=== PATIENT | male | born 1990 | race Caucasian/White ===

== ENCOUNTER → 2021-01-09 11:51 | Outpatient (CLI) | payer BC, SELFPAY ==
[2015-06-23 11:15] VITALS: BMI 30.1
[2021-01-09 15:21] LABS: Absolute Lymphocyte Count 0.55 X10^3/uL (0.83-4.51); Absolute Neutrophil Count 3.7 X10^3/uL (2.0-7.7); Basophil# 0.03 X10^3/uL; Basophil% 0.6 % (0-1); Differential Indicated SCAN CRITERIA MET; Eosinophil# 0.04 X10^3/uL; Eosinophils% 0.8 % (0-5); Hematocrit 51.5 % (40-54); Hemoglobin 17.3 g/dL (13.0-16.5); Lymphocyte # 0.55 X10^3/ul (4.0); Lymphocyte % 11.2 % (19-41); Mean Corp Hgb Conc 33.6 g/dL (32-36); Mean Corpuscular Hgb 32.1 pg (27.0-32.0); Mean Corpuscular Volume 95.5 fL (80-94); Mean Platelet Vol. 10.2 fl (6.2-12.0); Monocyte# 0.58 X10^3/uL; Monocyte% 11.8 % (0-10); NRBC Flagged by Analyzer 0 % (0-5); Neutrophil # 3.71 X10^3/uL (2.7-7.7); Neutrophil % 75.4 % (47-70); POSITIVE DIFFERENTIAL YES; Platelet Count 223 K/mm3 (150-450); RBC Distribution Width CV 12.3 % (11.6-14.6); RBC Distribution Width SD 43.6 fl (35.1-43.9); Red Blood Count 5.39 M/mm3 (4.6-6.2); White Blood Count 4.9 K/mm3 (4.4-11.0)
[2021-01-09 15:49] LABS: ALB/GLOB Ratio 1.2 RATIO (0.9-2.4); AST(SGOT) 392 U/L (15-37); Alanine Aminotransfer ALT/SGPT 401 U/L (16-61); Albumin, Serum 4.4 g/dL (3.2-5.0); Alkaline Phosphatase 121 U/L (45-117); Anion Gap 9 (5-15); BUN 9 mg/dL (7-18); BUN/Creat Ratio 6.7 RATIO (10-20); Calcium,Total 9.8 mg/dL (8.5-10.1); Chloride 100 mmol/L (98-107); Creatinine, Serum 1.34 mg/dL (0.70-1.30); EST Glomerular Filtration Rate 66 mL/min (>60); Est Glom Filt Rate - Afr Amer 80 mL/min (>60); Globulin 3.6 g/dL (2.2-4.2); Glucose 103 mg/dL (74-106); Lipase 180 U/L (73-393); Potassium 3.6 mmol/L (3.5-5.1); Sodium Level 135 mmol/L (136-145)
[2021-01-09 15:52] LABS: Anisocytosis RARE; Macrocytosis RARE; Platelet Estimate ADEQUATE (ADEQ); Red Cell Morphology N CHROM NORMAL (NORM C&C)
== END ==
PROVIDERS: PCP Internal Medicine; Visit Provider Family Medicine
DX: F10.10 Alcohol abuse, uncomplicated (principal); R11.0 Nausea
CPT/HCPCS: 36415; 80053; 83690; 85025

== ENCOUNTER 2021-01-21 04:28 | Inpatient (IN) | payer BC, SELFPAY ==
[2021-01-21] VITALS (9 sets, daily range): BP systolic 110–150; BP diastolic 64–102; PULSE 75–120; RESP 16–18; TEMP 36.7–37.1; O2SAT 94–100; BMI 26.9; BMI 27.0; BMI 27.1
[2021-01-21] MEDS: 0.9% Normal Saline 1,000 ML 999 ML IV (05:04)
[2021-01-21 05:07] LABS: Absolute Lymphocyte Count 1.48 X10^3/uL (0.83-4.51); Absolute Neutrophil Count 2.9 X10^3/uL (2.0-7.7); Basophil# 0.05 X10^3/uL; Eosinophil# 0.02 X10^3/uL; Eosinophils% 0.4 % (0-5); Hemoglobin 16.6 g/dL (13.0-16.5); Lymphocyte # 1.48 X10^3/ul (0.83-4.51); Lymphocyte % 28.7 % (19-41); Mean Corp Hgb Conc 34.6 g/dL (32-36); Mean Corpuscular Volume 92.5 fL (80-94); Mean Platelet Vol. 9.7 fl (6.2-12.0); Monocyte# 0.71 X10^3/uL; Monocyte% 13.8 % (0-10); NRBC Flagged by Analyzer 0 % (0-5); Neutrophil # 2.88 X10^3/uL (2.7-7.7); Neutrophil % 55.7 % (47-70); Platelet Count 338 K/mm3 (150-450); RBC Distribution Width CV 11.7 % (11.6-14.6); RBC Distribution Width SD 40.2 fl (35.1-43.9); Red Blood Count 5.19 M/mm3 (4.6-6.2); White Blood Count 5.2 K/mm3 (4.4-11.0)
--- NOTE | 2021-01-21 05:15 | ED.VIS.GEN ---
History of Present Illness Chief Complaint: Substance Abuse Informant: Patient Narrative: Patient presents requesting detox from alcohol. Patient states his last drink was approximate hour ago. Patient drinks beer and states he can drink up to 24 a day. He states he is trying to quit on his own but has been unable. He states he gets shaky if he stops drinking. He does not believe he is ever had a seizure. He has never been through a rehab program. Past Medical History - Allergies and Home Meds Allergies/Adverse Reactions: Allergies Penicillins Allergy (Intermediate, Verified 01/21/21 04:32) Rash Primary Care Physician: Caroline Hinkle MD [STAFF PHYSICIAN] - Past Medical History: - - Alcohol abuse Smoking Status: Never smoker Alcohol: Heavy Review of Systems General: Denies: Chills, Fever Eyes: Denies: Visual changes - bilaterally ENT: Denies: Bilateral ear pain Cardiovascular: Denies: Chest pain Respiratory: Denies: Dyspnea, Cough Gastrointestinal: Reports: Abdominal pain, Vomiting. Denies: Diarrhea Genitourinary: Denies: Dysuria Musculoskeletal: Denies: Swelling, Extremity Pain Skin: Denies: Rash Hematologic: Denies: Easy bruising, Easy bleeding Allergy: Denies: Uticaria Physical Exam Vital Signs/Narrative: Vital Signs Temp Pulse Resp BP Pulse Ox 01/21/21 04:28 98.1 F 120 H 18 150/99 H 100 Inital Vital Signs reviewed: Yes General: Well nourished, Well developed Head: Normocephalic Neck: Supple Cardiovascular: Regular rate, Regular rhythm Respiratory: No distress, CTA bilaterally Abdomen: Soft, Nontender, Hypoactive bowel sounds Extremities: Nontender Skin: Normal color Neurological: Alert, Oriented x3 Psychological: Normal affect Diagnostic/Tx/Re-eval Laboratory Results 01/21/21 01/21/21 01/21/21 04:45 04:55 04:55 WBC 5.2 RBC 5.19 Hgb 16.6 H Hct 48.0 MCV 92.5 MCH 32.0 MCHC 34.6 RDW Std Deviation 40.2 RDW Coeff of Thais 11.7 Plt Count 338 MPV 9.7 Immature Gran % (Auto) 0.400 Neut % (Auto) 55.7 Lymph % (Auto) 28.7 [place] % (Auto) 13.8 H Eos % (Auto) 0.4 Baso % (Auto) 1.0 Absolute Neuts (auto) 2.9 Absolute Lymphs (auto) 1.48 Nucleated RBC % 0 Sodium 136 Potassium 3.6 Chloride 98 Carbon Dioxide 30.0 Anion Gap 8 BUN 5 L Creatinine 1.21 Estim Creat Clear Calc 95.08 Est GFR (MDRD) Af Amer 90 Est GFR (MDRD) Non-Af 75 BUN/Creatinine Ratio 4.1 L Glucose 114 H Calcium 8.8 Total Bilirubin 0.50 AST 140 H ALT 132 H Alkaline Phosphatase 108 Total Protein 7.2 Albumin 4.0 Globulin 3.2 Albumin/Globulin Ratio 1.2 Urine Opiates Screen NEGATIVE Urine Methadone Screen NEGATIVE Ur Barbiturates Screen NEGATIVE Ur Phencyclidine Scrn NEGATIVE Ur Amphetamines Screen NEGATIVE U Methamphetamin-MDMA NEGATIVE U Benzodiazepines Scrn NEGATIVE Urine Cocaine Screen NEGATIVE U Cannabinoids Screen NEGATIVE Ur Drug Screen Comment Ethyl Alcohol 01/21/21 04:55 WBC RBC Hgb Hct MCV MCH MCHC RDW Std Deviation RDW Coeff of Thais Plt Count MPV Immature Gran % (Auto) Neut % (Auto) Lymph % (Auto) [place] % (Auto) Eos % (Auto) Baso % (Auto) Absolute Neuts (auto) Absolute Lymphs (auto) Nucleated RBC % Sodium Potassium Chloride Carbon Dioxide Anion Gap BUN Creatinine Estim Creat Clear Calc Est GFR (MDRD) Af Amer Est GFR (MDRD) Non-Af BUN/Creatinine Ratio Glucose Calcium Total Bilirubin AST ALT Alkaline Phosphatase Total Protein Albumin Globulin Albumin/Globulin Ratio Urine Opiates Screen Urine Methadone Screen Ur Barbiturates Screen Ur Phencyclidine Scrn Ur Amphetamines Screen U Methamphetamin-MDMA U Benzodiazepines Scrn Urine Cocaine Screen U Cannabinoids Screen Ur Drug Screen Comment Ethyl Alcohol 365.0 H* - Medical Decision Making Patient presents requesting detox from alcohol. He did agree to the requirements for the detox unit. Blood work is obtained. LFTs are slightly elevated. Alcohol is elevated at 365. Patient will be discussed with hospitalist for admission and treatment. ED Disposition - Plan for ED Patient: Disposition: Acute Care Hospital [facility] Diagnosis: Desire for detoxification, Alcohol abuse Referrals: Caroline Hinkle MD [STAFF PHYSICIAN] -
[2021-01-21 05:22] LABS: Amphetamine Urine VISTA NEGATIVE (<1000 ng/mL); Barbiturate Urine VISTA NEGATIVE (< 200 ng/mL); Benzodiazepine Urine VISTA NEGATIVE (< 200 ng/mL); Cocaine Urine VISTA NEGATIVE (< 300 ng/mL); Ecstacy Urine VISTA NEGATIVE (< 500 ng/mL); Methadone Urine VISTA NEGATIVE (< 300 ng/mL); PCP Urine VISTA NEGATIVE (< 25 ng/mL); THC Urine VISTA NEGATIVE (< 50 ng/mL); Vista UDS pH Range 6
[2021-01-21 05:25] LABS: ALB/GLOB Ratio 1.2 RATIO (0.9-2.4); AST(SGOT) 140 U/L (15-37); Alanine Aminotransfer ALT/SGPT 132 U/L (16-61); Alkaline Phosphatase 108 U/L (45-117); Anion Gap 8 (5-15); BUN 5 mg/dL (7-18); BUN/Creat Ratio 4.1 RATIO (10-20); Calcium,Total 8.8 mg/dL (8.5-10.1); Chloride 98 mmol/L (98-107); Creatinine, Serum 1.21 mg/dL (0.70-1.30); EST Glomerular Filtration Rate 75 mL/min (>60); Est Glom Filt Rate - Afr Amer 90 mL/min (>60); Estimated Creatinine Clearance 95.08 ml/min; Globulin 3.2 g/dL (2.2-4.2); Glucose 114 mg/dL (74-106); Potassium 3.6 mmol/L (3.5-5.1); Protein, Total 7.2 g/dL (6.4-8.2); Sodium Level 136 mmol/L (136-145)
--- NOTE | 2021-01-21 05:47 | HP.PCM_ITS ---
Problem List (1) Desire for detoxification Status: Acute (2) Alcohol abuse Status: Acute History of Present Illness Date of Admission: 01/21/21 Chief Complaint: Desire for detoxification The patient is a 30 year old M with a significant history of hypertension; tobacco abuse; and alcoholism who presents to the emergency department for help with alcohol detoxification. Patient has been drinking for more than 10 years. Reportedly he drinks about 24 packs of beer per day. Last time he drank was about an hour prior to coming to the emergency department. He is unable to quit drinking because anytime he has tried to quit drinking by himself he gets very nauseous and shaky. He has never gone to any alcohol detoxification or rehabilitation program. Past Medical History Medical History: Medical History (Last Updated 01/21/21 @ 05:[address] Josemanuel Potter MD) Hypertension I10 Allergies Penicillins Allergy (Intermediate, Verified 01/21/21 04:32) Rash Home Medications: Ambulatory Orders Medication Instructions Recorded Lisinopril 10 mg PO DAILY 01/21/21 Multivit-Minerals/FA/Lycopene [One 1 each PO DAILY 01/21/21 Daily For Men Tablet] Ondansetron HCl [Zofran] 4 mg PO TID PRN PRN 01/21/21 Surgical History: appendectomy, tonsillectomy Psychiatric History: Anxiety, Depression - Reports borderline depression Smoking Status: Current every day smoker Tobacco Use: Chew Alcohol: Heavy - *Family History Maternal History Items: - - Denies knowledge of maternal medical history Paternal History Items: - - His father is an alcoholic Review of Systems Constitutional: Denies: Chills, Fever, Weight Change HEENT: Denies: Head Aches, Sinus Congestion, Sinus Drainage Cardiovascular: Denies: Chest Pain, Palpitations Respiratory: Denies: Cough, Shortness of breath at rest, Sputum production Gastrointestinal: Denies: Abdominal Pain, Nausea, Vomiting Genitourinary: Denies: Dysuria Musculoskeletal: Denies: Joint Pain, Joint Tenderness Skin: Denies: Rash, Wounds Neurological: Denies: Numbness, Tingling, Focal weakness Psychiatric: Denies: Anxiety, Depression, Homicidal Ideations, Suicidal Ideations Hematologic/ Lymphatic: Denies: Easy Bruising, Easy Bleeding VTE Information - Inpt Only VTE Present on Admission: No VTE Mechan Device Prophylaxis: None VTE Pharm Prophylaxis ordered?: No Reason prophylaxis not ordered:: Treatment Not Indicated - Encouraged to ambulate Patient Problems: Active and Suspected Problems Desire for detoxification (Acute) Alcohol abuse (Acute) - Physical Exam Vitals/I&O's: Vital Signs Temp Pulse Resp BP Pulse Ox 98.1 F 120 H 18 150/99 H 100 01/21/21 04:28 01/21/21 04:28 01/21/21 04:28 01/21/21 04:28 01/21/21 04:28 Oxygen Delivery Method Room Air Weight: 87.8 kg Body Mass Index (BMI) 26.9 General: Alert, Oriented x3, Cooperative HEENT: Atraumatic, PERRLA, EOMI, Normocephalic Neck: Supple, No JVD, Negative Carotid Bruits Lungs: Clear to auscultation, Normal air movement Cardiovascular: Regular rate, Normal S1, Normal S2, No murmurs Abdomen: Bowel Sounds Present, Soft, Non Tender Extremities: No edema, Capillary Refill Less than 3 Seconds Skin: No rashes, No breakdown Musculoskeletal: No Tenderness to Palpation of Joints or Extremities Neurological: Cranial nerves II-XII grossly intact Psych/Mental Status: Normal Affect, Appropriate Laboratory Results 01/21/21 04:45: Urine Opiates Screen NEGATIVE, Urine Methadone Screen NEGATIVE, Ur Barbiturates Screen NEGATIVE, Ur Phencyclidine Scrn NEGATIVE, Ur Amphetamines Screen NEGATIVE, U Methamphetamin-MDMA NEGATIVE, U Benzodiazepines Scrn NEGATIVE, Urine Cocaine Screen NEGATIVE, U Cannabinoids Screen NEGATIVE, Ur Drug Screen Comment 01/21/21 04:55: WBC 5.2, RBC 5.19, Hgb 16.6 H, Hct 48.0, MCV 92.5, MCH 32.0, MCHC 34.6, RDW Std Deviation 40.2, RDW Coeff of Thais 11.7, Plt Count 338, MPV 9.7, Immature Gran % (Auto) 0.400, Neut % (Auto) 55.7, Lymph % (Auto) 28.7, [place] % (Auto) 13.8 H, Eos % (Auto) 0.4, Baso % (Auto) 1.0, Absolute Neuts (auto) 2.9, Absolute Lymphs (auto) 1.48, Nucleated RBC % 0 01/21/21 04:55: Sodium 136, Potassium 3.6, Chloride 98, Carbon Dioxide 30.0, Anion Gap 8, BUN 5 L, Creatinine 1.21, Estim Creat Clear Calc 95.08, Est GFR (MDRD) Af Amer 90, Est GFR (MDRD) Non-Af 75, BUN/Creatinine Ratio 4.1 L, Glucose 114 H, Calcium 8.8, Total Bilirubin 0.50, AST 140 H, ALT 132 H, Alkaline Phosphatase 108, Total Protein 7.2, Albumin 4.0, Globulin 3.2, Albumin/Globulin Ratio 1.2 01/21/21 04:55: Ethyl Alcohol 365.0 H* Current Medications Sodium Chloride () 1,000 mls @ 999 mls/hr IV .Q1H1M ONE Stop: 01/21/21 05:51 Last Admin: 01/21/21 05:04 Dose: 999 mls/hr Documented by: Assessment/Plan All Active Problems Desire for detoxification (Acute) Alcohol abuse (Acute) The patient is a 30 year old M with a significant history of alcoholism; and t obacco abuse who presents emergency department for help with alcohol detoxification Alcohol dependence and desire for detoxification Patient be started on phenobarbital and other adjunctive medications: Gabapentin as needed; dicyclomine as needed; Vistaril as needed; methocarbamol as needed; clonidine as needed; Imodium as needed; trazodone as needed; Zofran as needed; scheduled thiamine; and schedule folic acid.. Monitor CIWA score Tobacco abuse Chews tobacco Counseled Agreeable to try nicotine gum. Nicotine gum as needed prescribed. Hypertension Blood pressure is not within goal Lisinopril continued. Trend blood pressure and adjust blood pressure medications. DVT prophylaxis Low risk Encourage to ambulate Inpatient E&M: 14281 Init Hosp L3
[2021-01-21] MEDS: Ondansetron 8 MG Tablet PO ×2 (08:06→18:20)
[2021-01-21] MEDS: Thiamine Hydrochloride 100 MG Tablet PO (08:06)
[2021-01-21] MEDS: Folic Acid 1 MG Tablet PO (08:06)
[2021-01-21] MEDS: Lisinopril 10 MG Tablet PO (08:06)
[2021-01-21] MEDS: Phenobarbital 32.4 MG Tablet 64.8 MG PO ×5 (08:06→23:04)
[2021-01-21] MEDS: Multivitamins,Therapeutic Tablet 1 TABLET PO (08:06)
--- NOTE | 2021-01-21 11:02 | CASEMGMT ---
SOCIAL WORK Patient admitted to [facility] for alcohol withdrawal management. Call to Jeanne with [facility] [employer] to updated on patient's admission. Jeanne to be in this afternoon to complete assessment. Aretha Ortega, MICA SPREADER, WAG[employer] DRILL OPERATOR
[2021-01-21] MEDS: proCHLORPERazine 10 MG/2 ML Vial 5 MG IV (21:32)
[2021-01-21] MEDS: 0.9% Saline Lock 10 ML Syringe IV (21:32)
[2021-01-21] MEDS: hydrOXYzine PAM 25 MG Capsule 50 MG PO (21:37)
[2021-01-21] MEDS: Gabapentin 300 MG Capsule PO (21:37)
[2021-01-21] MEDS: traZODone 100 MG Tablet PO (21:38)
[2021-01-21] MEDS: Nicotine Polacrilex 2 MG GUM PO (21:38)
[2021-01-22] MEDS: Phenobarbital 32.4 MG Tablet 64.8 MG PO ×6 (03:28→22:40)
[2021-01-22 03:33] VITALS: BP 118/68; PULSE 63; RESP 16; TEMP 37.3; O2SAT 96
[2021-01-22 03:36] VITALS: BP 118/68; PULSE 63; RESP 16; TEMP 37.3; O2SAT 96
[2021-01-22] MEDS: Multivitamins,Therapeutic Tablet 1 TABLET PO (08:29)
[2021-01-22] MEDS: Thiamine Hydrochloride 100 MG Tablet PO (08:29)
[2021-01-22] MEDS: Lisinopril 10 MG Tablet PO (08:29)
[2021-01-22] MEDS: Folic Acid 1 MG Tablet PO (08:29)
[2021-01-22 08:33] VITALS: BP 130/83; PULSE 77; RESP 16; TEMP 36.8; O2SAT 97
[2021-01-22] MEDS: Loperamide 2 MG Capsule PO ×2 (10:51→18:25)
--- NOTE | 2021-01-22 10:51 | PN_ITS ---
Patient Problems: Active and Suspected Problems Desire for detoxification (Acute) Alcohol abuse (Acute) Subjective: Feeling well today. Denies any significant symptoms of withdrawal he is a little bit anxious but otherwise not too bad. Vitals/I&O's: Vital Signs Temp Pulse Resp BP Pulse Ox 98.2 F 77 16 130/83 H 97 01/22/21 08:33 01/22/21 08:33 01/22/21 08:33 01/22/21 08:33 01/22/21 08:33 Oxygen Delivery Method Room Air Weight: 193 lb 5.526 oz Body Mass Index (BMI) 27.0 Intake and Output for Last 24 Hours 01/20/21 01/21/21 01/22/21 23:59 23:59 23:59 Intake Total 1800 / 2600 1400 / 1400 Balance 1800 / 2600 1400 / 1400 General: Alert, Oriented x3, Cooperative, No apparent distress HEENT: Atraumatic, PERRLA, EOMI, Normocephalic Oral: Moist Mucosa Neck: Supple, No JVD Lungs: Clear to auscultation, Normal air movement, No rhonchi, No wheeze, No rales Cardiovascular: Regular rate, Regular Rhythm, Normal S1, Normal S2, No murmurs Abdomen: Soft, Non Tender, Non-Distended, No Hepato-splenomegaly Extremities: No edema, Capillary Refill Less than 3 Seconds Skin: No rashes, No breakdown Neurological: Neuro grossly intact, Sensory exam intact to light touch and pain Psych/Mental Status: Anxious Current Medications Dicyclomine HCl (Dicyclomine 10 Mg Capsule) 20 mg PO Q6H PRN PRN PRN Reason: abdominal discomfort Folic Acid (Folic Acid 1 Mg Tablet) 1 mg PO DAILY@0800 [facility] Last Admin: 01/22/21 08:29 Dose: 1 mg Documented by: Gabapentin (Gabapentin 300 Mg Capsule) 300 mg PO Q8H PRN PRN PRN Reason: moderate to severe anxiety Last Admin: 01/21/21 21:37 Dose: 300 mg Documented by: Hydroxyzine Pamoate (Hydroxyzine Bella 25 Mg Capsule) 50 mg PO Q4H PRN PRN PRN Reason: mild anxiety Last Admin: 01/21/21 21:37 Dose: 50 mg Documented by: Lisinopril (Lisinopril 10 Mg Tablet) 10 mg PO DAILY [facility] Last Admin: 01/22/21 08:29 Dose: 10 mg Documented by: Loperamide HCl (Loperamide 2 Mg Capsule) 2 mg PO Q4H PRN PRN PRN Reason: LOOSE STOOLS Multivitamins (Multivitamins,Therapeutic Tablet) 1 tablet PO DAILYCM [facility] Last Admin: 01/22/21 08:29 Dose: 1 tablet Documented by: Nicotine Polacrilex (Nicotine Polacrilex 2 Mg Gum) 2 mg PO Q2H PRN PRN PRN Reason: Cravings for tobacco Last Admin: 01/21/21 21:38 Dose: 2 mg Documented by: Nutritional Formula (Lactose Free) (Ensure Enlive 120 Ml Liquid) 120 ml PO 4X/DAY [facility] Last Admin: 01/22/21 08:30 Dose: 120 ml Documented by: Ondansetron HCl (Ondansetron 4 Mg/2 Ml Vial) 4 mg IV Q6H PRN PRN PRN Reason: NAUSEA/VOMITING Phenobarbital (Phenobarbital 32.4 Mg Tablet) 97.2 mg PO Q4H [facility]; Taper Stop: 01/25/21 14:59 Last Admin: 01/22/21 06:32 Dose: 97.2 mg Documented by: Prochlorperazine Edisylate (Prochlorperazine 10 Mg/2 Ml Vial) 5 mg IV Q4H PRN PRN PRN Reason: NAUSEA/VOMITING Last Admin: 01/21/21 21:32 Dose: 5 mg Documented by: Sodium Chloride (0.9% Saline Lock 10 Ml Syringe) 10 - 40 ml IV UD PRN PRN Reason: SALINE FLUSH Last Admin: 01/21/21 21:32 Dose: 10 ml Documented by: Thiamine HCl ([facility] Hydrochloride 100 Mg Tablet) [facility] Last Admin: 01/22/21 08:29 Dose: 100 mg Documented by: Trazodone HCl (Trazodone 100 Mg Tablet) 100 mg PO QHS PRN PRN Reason: INSOMNIA Last Admin: 01/21/21 21:38 Dose: 100 mg Documented by: STROKE Vital Signs/Narrative: Vital Signs Temp Pulse Resp BP Pulse Ox 01/22/21 08:33 98.2 F 77 16 130/83 H 97 Medical Necessity - Tobacco Use Smoking Status: Current every day smoker Tobacco Use: Chew Assessment/Plan All Active Problems Desire for detoxification (Acute) Alcohol abuse (Acute) 1. Acute alcohol withdrawal/tobacco abuse -Continue with the alcohol withdrawal protocol -Need to follow-up with 180 as an outpatient -Discussed cessation of his chew tobacco, he is willing to try nicotine gum we will continue. 2. HTN -Blood pressures are stable -Continue with lisinopril DVT: Ambulation Inpatient E&M: 70148 Subs Hosp L2
[2021-01-22 10:57] VITALS: BP 145/90; PULSE 91; RESP 16; TEMP 37.6; O2SAT 96
[2021-01-22 14:52] VITALS: BP 132/70; PULSE 99; RESP 16; TEMP 37; O2SAT 97
[2021-01-22 22:32] VITALS: BP 149/88; PULSE 102; RESP 15; TEMP 36.8; O2SAT 97
[2021-01-22] MEDS: traZODone 100 MG Tablet PO (22:40)
[2021-01-23 03:03] VITALS: BP 136/84; PULSE 92; RESP 15; TEMP 36.9; O2SAT 96
[2021-01-23] MEDS: Phenobarbital 32.4 MG Tablet 64.8 MG PO ×4 (03:03→14:44)
[2021-01-23 07:57] VITALS: BP 142/85; PULSE 89; RESP 16; TEMP 36.8; O2SAT 97
[2021-01-23] MEDS: Lisinopril 10 MG Tablet PO (07:59)
[2021-01-23] MEDS: Thiamine Hydrochloride 100 MG Tablet PO (07:59)
[2021-01-23] MEDS: Multivitamins,Therapeutic Tablet 1 TABLET PO (08:00)
[2021-01-23] MEDS: Folic Acid 1 MG Tablet PO (08:00)
[2021-01-23] MEDS: Nicotine Polacrilex 2 MG GUM PO ×2 (08:03→17:10)
[2021-01-23] MEDS: hydrOXYzine PAM 25 MG Capsule 50 MG PO ×2 (11:24→23:09)
[2021-01-23 11:25] VITALS: BP 138/90; PULSE 93; RESP 18; TEMP 36.9; O2SAT 98
--- NOTE | 2021-01-23 15:16 | CHAPLAIN ---
Type of Pastoral Visit _x__ Initial Visit ___ Follow-up Visit ___ On-call Visit ___ General Patient Visit ___ Spiritual Assessment ___ Family Conference ___ Bereavement ___ Rapid Response ___ Code Blue ___ Other (describe below) Pastoral Care Referral From _x__ Patient ___ Family ___ Nurse ___ Physician ___ Pre Billing Clinician ___ Supervisor Paper Coating ___ Other (describe below) Sacrament/Intervention _x__ Active listening ___ Anointing ___ Baptist ___ Bereavement ___ Communion _x__ Sarah exploration ___ _x__ Life review _x__ Prayer ___ Reconciliation ___ Sacrament of Sick _x__ Supportive presence ___ Wedding ___ Other (describe below) Pastoral Comments patient has a goal to be baptized in the baptism but his struggles with alcohol have been a hindrance to follow through on his plans; pt has a daughter that he wants to be involved with more in life; pt lives alone and has some but limited support
--- NOTE | 2021-01-23 16:39 | PN_ITS ---
Patient Problems: Active and Suspected Problems Desire for detoxification (Acute) Alcohol abuse (Acute) Subjective: Patient was seen and examined today, he did not complain of any tremor or anxiety to this examiner, he question whether he could be discharged tomorrow-I told him I would review his phenobarbital dose and try to make adjustments if possible. - Physical Exam Vitals/I&O's: Vital Signs Temp Pulse Resp BP Pulse Ox 98.4 F 93 18 138/90 H 98 01/23/21 11:25 01/23/21 11:25 01/23/21 11:25 01/23/21 11:25 01/23/21 11:25 Oxygen Delivery Method Room Air Weight: 87.7 kg Body Mass Index (BMI) 27.0 Intake and Output for Last 24 Hours 01/21/21 01/22/21 01/23/21 23:59 23:59 23:59 Intake Total 1800 / 2600 2990 / 2990 1470 / 1470 Balance 1800 / 2600 2990 / 2990 1470 / 1470 General: Alert, Oriented x3, Cooperative, No apparent distress, Well developed, Well nourished HEENT: Atraumatic, PERRLA, EOMI, Normocephalic Neck: Supple, No JVD, Negative Carotid Bruits, Trachea Midline, Thyroid Normal S ize and Texture Lungs: Clear to auscultation, Normal air movement, No rhonchi, No wheeze, No rales Cardiovascular: Regular rate, Regular Rhythm, Normal S1, Normal S2, No murmurs, PMI Normal, No rub noted, No Gallop Abdomen: Bowel Sounds Present, Soft, Non Tender, Non-Distended Extremities: No clubbing, No cyanosis, No edema, Capillary Refill Less than 3 Seconds Skin: No rashes, No breakdown Musculoskeletal: No Tenderness to Palpation of Joints or Extremities Neurological: Cranial nerves II-XII grossly intact, Neuro grossly intact, Sensory exam intact to light touch and pain, Coordination normal Psych/Mental Status: Normal Affect, Appropriate, Alert and oriented to time, place, person, mood and affect Current Medications Dicyclomine HCl (Dicyclomine 10 Mg Capsule) 20 mg PO Q6H PRN PRN PRN Reason: abdominal discomfort Folic Acid (Folic Acid 1 Mg Tablet) 1 mg PO DAILY@0800 [facility] Last Admin: 01/23/21 08:00 Dose: 1 mg Documented by: Gabapentin (Gabapentin 300 Mg Capsule) 300 mg PO Q8H PRN PRN PRN Reason: moderate to severe anxiety Last Admin: 01/21/21 21:37 Dose: 300 mg Documented by: Hydroxyzine Pamoate (Hydroxyzine Bella 25 Mg Capsule) 50 mg PO Q4H PRN PRN PRN Reason: mild anxiety Last Admin: 01/23/21 11:24 Dose: 50 mg Documented by: Lisinopril (Lisinopril 10 Mg Tablet) 10 mg PO DAILY [facility] Last Admin: 01/23/21 07:59 Dose: 10 mg Documented by: Loperamide HCl (Loperamide 2 Mg Capsule) 2 mg PO Q4H PRN PRN PRN Reason: LOOSE STOOLS Last Admin: 01/22/21 18:25 Dose: 2 mg Documented by: Multivitamins ([facility],Therapeutic [facility]t) [facility] Last Admin: 01/23/21 08:00 Dose: 1 tablet Documented by: Nicotine Polacrilex (Nicotine Polacrilex 2 Mg Gum) 2 mg PO Q2H PRN PRN PRN Reason: Cravings for tobacco Last Admin: 01/23/21 08:03 Dose: 2 mg Documented by: Nutritional Formula (Lactose Free) (Ensure Enlive 120 Ml Liquid) 120 ml PO 4X/DAY [facility] Last Admin: 01/23/21 14:13 Dose: 120 ml Documented by: Ondansetron HCl (Ondansetron 4 Mg/2 Ml Vial) 4 mg IV Q6H PRN PRN PRN Reason: NAUSEA/VOMITING Phenobarbital (Phenobarbital 32.4 Mg Tablet) 64.8 mg PO Q6H [facility]; Taper Stop: 01/25/21 14:59 Last Admin: 01/23/21 14:44 Dose: 64.8 mg Documented by: Prochlorperazine Edisylate (Prochlorperazine 10 Mg/2 Ml Vial) 5 mg IV Q4H PRN PRN PRN Reason: NAUSEA/VOMITING Last Admin: 01/21/21 21:32 Dose: 5 mg Documented by: Sodium Chloride (0.9% Saline Lock 10 Ml Syringe) 10 - 40 ml IV UD PRN PRN Reason: SALINE FLUSH Last Admin: 01/21/21 21:32 Dose: 10 ml Documented by: Thiamine HCl (Thiamine Hydrochloride 100 Mg Tablet) 100 mg PO DAILYCM [facility] Last Admin: 01/23/21 07:59 Dose: 100 mg Documented by: Trazodone HCl (Trazodone 100 Mg Tablet) 100 mg PO QHS PRN PRN Reason: INSOMNIA Last Admin: 01/22/21 22:40 Dose: 100 mg Documented by: Medical Necessity - Tobacco Use Smoking Status: Current every day smoker Tobacco Use: Chew Assessment/Plan All Active Problems Desire for detoxification (Acute) Alcohol abuse (Acute) #1 acute alcohol withdrawal-I have decided to decrease the patient's phenobarbital to twice daily at reduced dosage, patient will continue to be monitored, patient has an appointment with 180 tomorrow as an outpatient, this will be a walk-in appointment. #2 chronic alcoholism #3 essential hypertension Inpatient E&M: 28852 Subs Hosp L2
[2021-01-23 17:21] VITALS: BP 142/80; TEMP 36.7
[2021-01-23 23:03] VITALS: BP 135/74; PULSE 90; RESP 15; TEMP 37.1; O2SAT 99
[2021-01-23] MEDS: traZODone 100 MG Tablet PO (23:09)
[2021-01-23] MEDS: Phenobarbital 32.4 MG Tablet PO (23:09)
[2021-01-24 03:46] VITALS: BP 132/78; PULSE 99; RESP 16; TEMP 37; O2SAT 98
[2021-01-24] MEDS: Thiamine Hydrochloride 100 MG Tablet PO (08:45)
[2021-01-24] MEDS: Multivitamins,Therapeutic Tablet 1 TABLET PO (08:45)
[2021-01-24] MEDS: Folic Acid 1 MG Tablet PO (08:45)
[2021-01-24 09:26] VITALS: BP 137/75; PULSE 86; RESP 18; TEMP 36.7; O2SAT 98
[2021-01-24] MEDS: Lisinopril 10 MG Tablet PO (09:38)
[2021-01-24] MEDS: Phenobarbital 32.4 MG Tablet PO (09:38)
[2021-01-24] MEDS: Nicotine Polacrilex 2 MG GUM PO (09:38)
--- NOTE | 2021-01-24 11:51 | DCINST_ITS ---
- Discharge Diagnoses Current Active Problems: Current Active and Chronic Problems Desire for detoxification (Acute) Alcohol abuse (Acute) You will use the following diet at home:: No restrictions Your food should be the consistency of: Regular Your liquids should be the consistency of: Regular/Thin Discharge Activity: Return to Normal Activity Weight Bearing Status: Full weight bearing Allergies/Adverse Reactions: Allergies Penicillins Allergy (Intermediate, Verified 01/21/21 04:32) Rash Medications to take at Discharge Lisinopril 10 mg PO DAILY 01/21/21 Multivit-Minerals/FA/Lycopene [One Daily For Men Tablet] 1 each PO DAILY 01/21/21 Ondansetron HCl [Zofran] 4 mg PO TID PRN PRN 01/21/21 Primary Care Physician: Caroline Hinkle MD [STAFF PHYSICIAN] - Test Results: Test results from this visit will be discussed in further detail at your follow- up appointment, if applicable. Please Follow Up With: 180 TODAY
[2021-01-24 12:11] VITALS: BP 142/91; PULSE 96; RESP 18; TEMP 36.9; O2SAT 99
--- NOTE | 2021-01-26 10:33 | PCM.DC.SUM ---
Discharge Date and Diagnosis - Problem List Patient Problems: Active and Suspected Problems Desire for detoxification (Acute) Alcohol abuse (Acute) Date of Admission: 01/21/21 Date of Discharge: 01/25/21 - Primary Discharge Diagnosis Acute Problems: Active Problems #1 acute alcohol withdrawal #2 chronic alcoholism #3 essential hypertension #4 alcohol intoxication Hospital Course and Treatment Operations: None Procedures: None Summary of Care Provided: The patient is a 30 year old M was seen in the emergency room at [facility] desiring services for detox from alcoholism. Patient was admitted to [place] [address], order sets were entered using the alcohol detox order set, there were no untoward events during his hospitalization and the patient showed no evidence of DTs. Patient was seen in consultation by addiction social media community manager and agreed to follow-up with 180 as an outpatient. On 01/24/21, patient was seen and examined: On examination he appeared in good health and spirits. Vital signs as documented. Skin warm and dry and without overt rashes. Neck without JVD, neck was supple, trachea midline, thyroid was normal. Lungs clear bilaterally, normal air movement was noted. Heart exam notable for regular rhythm, normal sounds and absence of murmurs, rubs or gallops. Abdomen unremarkable and without evidence of organomegaly, masses, or abdominal aortic enlargement. Bowel sounds are present, abdomen is not distended. Extremities nonedematous, no cyanosis was noted, no clubbing was noted. Neuro: Cranial nerves II through XII are grossly intact, no focal motor deficits were noted, sensation to light touch and pinprick intact, motor exam 5/5 throughout. Psych: Patient is alert and oriented x3, he does not appear anxious or depressed, he does not appear agitated. Patient was discharged in stable condition on 01/24/2021. Patient Problems: Active and Suspected Problems Desire for detoxification (Acute) Alcohol abuse (Acute) - Physical Exam Vitals/I&O's: Vital Signs Temp Pulse Resp BP Pulse Ox 98.4 F 96 18 142/91 H 99 01/24/21 12:11 01/24/21 12:11 01/24/21 12:11 01/24/21 12:11 01/24/21 12:11 Oxygen Delivery Method Room Air Weight: 87.7 kg Body Mass Index (BMI) 27.0 Intake and Output for Last 24 Hours 04/01/25/21 01/26/21 23:59 23:59 23:59 Intake Total 1020 / 1020 Balance 1020 / 1020 Discharge Activity: Return to Normal Activity Weight Bearing Status: Full weight bearing Home Medications: Medications to take at Discharge Lisinopril 10 mg PO DAILY 01/21/21 Multivit-Minerals/FA/Lycopene [One Daily For Men Tablet] 1 each PO DAILY 01/21/21 Ondansetron HCl [Zofran] 4 mg PO TID PRN PRN 01/21/21 Primary Care Physician: Caroline Hinkle MD [STAFF PHYSICIAN] - Please Follow Up With: 180 TODAY Disposition: Home Minutes spent on discharge:: 31 Patient Condition:: Stable Medical Necessity - Tobacco Use Smoking Status: Current every day smoker Tobacco Use: Chew Meaningful Use Info Meaningful Use Diagnoses (Choose all that apply): None applicable Inpatient E&M: 72637 Disch Hosp
== END 2021-01-24 12:12 | disposition home or self-care (01) | DRG 897 ==
LOC: ED 05:33 → MS3 05:43
PROVIDERS: Admitting Provider Hospitalist; Emergency Provider Emergency Medicine; PCP Family Medicine; Visit Provider Internal Medicine
DX: F10.239 Alcohol dependence with withdrawal, unspecified (principal); F17.220 Nicotine dependence, chewing tobacco, uncomplicated; F10.229 Alcohol dependence with intoxication, unspecified; I10 Essential (primary) hypertension; Z79.899 Other long term (current) drug therapy; Y90.8 Blood alcohol level of 240 mg/100 ml or more
CPT/HCPCS: 80053; 80307; 82077; 85025; 97802; 99283; J7030; A4216

== ENCOUNTER 2021-03-13 19:52 | Inpatient (IN) | payer SELFPAY ==
[2021-01-21 06:17] VITALS: BMI 27.0
[2021-03-13 19:53] VITALS: BP 143/78; PULSE 133; RESP 16; TEMP 36.4; O2SAT 100; BMI 27.8
--- NOTE | 2021-03-13 20:01 | EKG12_ITS ---
Test Reason : SUB ABUSE Blood Pressure : / mmHG Vent. Rate : 123 BPM Atrial Rate : 123 BPM P-R Int : 124 ms QRS Dur : 090 ms QT Int : 364 ms P-R-T Axes : 075 054 055 degrees QTc Int : 521 ms Sinus tachycardia Otherwise normal ECG Confirmed by BRIAN LEVY, CECILIA ([id number]), editor trade journal MIN BOLAÑOS ([id number]) on 03/17/2021 8:15:14 AM Referred By: Confirmed By:CECILIA TORRES MD
--- NOTE | 2021-03-13 20:06 | EX.ED.DYSGE1 ---
HPI History of Present Illness Chief Complaint: Substance Abuse Informant: patient Narrative Narrative: 30-year-old male with a history of alcoholism states that he last had detox 1 month ago (review of the chart shows it was actually January 21 when he was here). He states about 2 weeks ago his grandfather and he went back to drinking 18+ beers a day. He states he drinks until he passes out. Last drink was late last night. He states that he did not follow-up because he thought he could maintain sobriety by himself. [facility] Medical History Asthma Hypertension Hypertension Home Medications lisinopril 10 mg PO DAILY 01/21/21 [History Last Taken 01/17/21] multivit with [id number] 1 each PO DAILY 01/21/21 [History Last Taken Unknown] fluoxetine 40 mg DAILY 03/13/21 [History Last Taken Unknown] Allergy/AdvReac Type Severity Reaction Status Date / Time Penicillins Allergy Intermediate Rash Verified 03/13/21 19:55 Surgical History (Updated 03/13/21 @ 19:58 by Verito Lovell RN) History of appendectomy Social History (Updated 03/13/21 @ 20:[address] Javier Thibodeaux DO) Smoking Status: Current every day smoker tobacco type: smokeless tobacco alcohol intake: current alcohol intake frequency: 3 or more drinks per day Alcohol type: beer substance use type: does not use ROS ROS ED Constitutional Constitutional ED: Denies chills or weight loss Eyes Eyes: Denies change in vision or diplopia ENT ENT ED: Denies ear pain, rhinorrhea or sore throat Cardiovascular Cardiovascular: Denies chest pain, orthopnea, palpitations or racing heartbeat Respiratory/Chest Respiratory/Chest: Denies cough, dyspnea or orthopnea Gastrointestinal Gastrointestinal: Denies abdominal pain, diarrhea, nausea or vomiting Genitourinary Genitourinary ED: Denies dysuria, hematuria or urinary frequency Musculoskeletal Musculoskeletal: Denies arthralgias or myalgias Integumentary Denies abscess or rash Neurologic Neurologic: Denies headache(s) or weakness Psychiatric Psychiatric: Denies anxiety, depression, suicidal ideation or suicidal thoughts Endocrine Endocrinology: Denies polydipsia, polyphagia or polyuria Allergic/Immunologic Allergic/Immunologic ED: Denies mouth swelling, tongue swelling or urticaria EXAM Physical Exam Const Vital Signs: 03/13/21 19:53 03/13/21 20:12 Temperature 97.6 F L 97.2 F L Temperature Source Temporal Temporal Pulse Rate 133 H 101 H Respiratory Rate 16 14 Blood Pressure 143/78 H Blood Pressure Mean 99 Pulse Ox 100 98 Oxygen Delivery Method Room Air Room Air Positive well nourished and well developed General Appearance ED: well developed HEENT Reports normocephalic, head/scalp atraumatic and moist mucous membranes Eyes PERRL and EOMs intact bilaterally Neck no lymphadenopathy, supple and no JVD Resp normal respiratory effort and clear to auscultation bilaterally Cardio regular rate and no murmurs Rate: tachycardic GI normal to inspection, nondistended, normoactive bowel sounds and non-tender Palpation: soft Back/Spine no CVA tenderness and normal ROM Extremity normal to inspection General Extremety ED: Negative for edema General Extremity: Negative for edema Neuro oriented x3 and CN's II-XII intact bilaterally Sensorium / Orientation: alert Motor Exam: strength 5/5 throughout Psych mental status grossly normal Mood & Affect: Negative for depressed or tearful Skin no rashes or lesions noted and no wounds MDM MDM MDM Narrative Medical decision making narrative: ED addiction order set was used. Once he is medically cleared and if he is agreeable to the rules of the program I will speak with the hospitalist regarding potential admission Lab Data Attestation: I reviewed the patient's lab results. Labs: Laboratory Results - last 24 hr 03/13/21 03/13/21 03/13/21 20:03 20:15 20:15 WBC 8.3 RBC 5.43 Hgb 17.1 H Hct 47.4 MCV 87.3 MCH 31.5 MCHC 36.1 H RDW Std Deviation 38.0 RDW Coeff of Thais 12.1 Plt Count 330 MPV 9.3 Immature Gran % (Auto) 0.400 Neut % (Auto) 79.3 H Lymph % (Auto) 11.9 L [place] % (Auto) 7.9 Eos % (Auto) 0.0 Baso % (Auto) 0.5 Absolute Neuts (auto) 6.6 Absolute Lymphs (auto) 0.98 Nucleated RBC % 0 PT 14.0 INR 1.1 Sodium Potassium Chloride Carbon Dioxide Anion Gap BUN Creatinine Estim Creat Clear Calc Est GFR (MDRD) Af Amer Est GFR (MDRD) Non-Af BUN/Creatinine Ratio Glucose Calcium Total Bilirubin AST ALT Alkaline Phosphatase Total Protein Albumin Globulin Albumin/Globulin Ratio Urine Opiates Screen NEGATIVE Urine Methadone Screen NEGATIVE Ur Barbiturates Screen NEGATIVE Ur Phencyclidine Scrn NEGATIVE Ur Amphetamines Screen NEGATIVE U Methamphetamin-MDMA NEGATIVE U Benzodiazepines Scrn NEGATIVE Urine Cocaine Screen NEGATIVE U Cannabinoids Screen NEGATIVE Ur Drug Screen Comment Ethyl Alcohol 03/13/21 03/13/21 20:15 20:15 WBC RBC Hgb Hct MCV MCH MCHC RDW Std Deviation RDW Coeff of Thais Plt Count MPV Immature Gran % (Auto) Neut % (Auto) Lymph % (Auto) [place] % (Auto) Eos % (Auto) Baso % (Auto) Absolute Neuts (auto) Absolute Lymphs (auto) Nucleated RBC % PT INR Sodium 135 L Potassium 3.3 L Chloride 95 L Carbon Dioxide 22.0 Anion Gap 18 H BUN 9 Creatinine 1.38 H Estim Creat Clear Calc 83.36 Est GFR (MDRD) Af Amer 77 Est GFR (MDRD) Non-Af 64 BUN/Creatinine Ratio 6.5 L Glucose 142 H Calcium 9.6 Total Bilirubin 1.00 AST 45 H ALT 70 H Alkaline Phosphatase 91 Total Protein 7.8 Albumin 4.4 Globulin 3.4 Albumin/Globulin Ratio 1.3 Urine Opiates Screen Urine Methadone Screen Ur Barbiturates Screen Ur Phencyclidine Scrn Ur Amphetamines Screen U Methamphetamin-MDMA U Benzodiazepines Scrn Urine Cocaine Screen U Cannabinoids Screen Ur Drug Screen Comment Ethyl Alcohol 12.0 EKG Initial EKG: Attestation: I personally reviewed and interpreted this EKG as follows: Interpretation: Sinus Tachycardia Comments: EKG is a sinus tachycardia at a rate of 123. Discharge Plan Dx/Rx/DC Orders Clinical Impression: Alcohol abuse, Alcohol withdrawal Disposition Disposition: Acute Care Hospital [facility]
[2021-03-13 20:12] VITALS: PULSE 101; RESP 14; TEMP 36.2; O2SAT 98
[2021-03-13 20:27] LABS: Amphetamine Urine VISTA NEGATIVE (<1000 ng/mL); Barbiturate Urine VISTA NEGATIVE (< 200 ng/mL); Benzodiazepine Urine VISTA NEGATIVE (< 200 ng/mL); Cocaine Urine VISTA NEGATIVE (< 300 ng/mL); Ecstacy Urine VISTA NEGATIVE (< 500 ng/mL); Methadone Urine VISTA NEGATIVE (< 300 ng/mL); PCP Urine VISTA NEGATIVE (< 25 ng/mL); THC Urine VISTA NEGATIVE (< 50 ng/mL); Vista UDS pH Range 6
[2021-03-13 20:29] LABS: Absolute Lymphocyte Count 0.98 X10^3/uL (0.83-4.51); Absolute Neutrophil Count 6.6 X10^3/uL (2.0-7.7); Basophil# 0.04 X10^3/uL; Basophil% 0.5 % (0-1); Hematocrit 47.4 % (40-54); Hemoglobin 17.1 g/dL (13.0-16.5); Lymphocyte # 0.98 X10^3/ul (0.83-4.51); Lymphocyte % 11.9 % (19-41); Mean Corp Hgb Conc 36.1 g/dL (32-36); Mean Corpuscular Hgb 31.5 pg (27.0-32.0); Mean Corpuscular Volume 87.3 fL (80-94); Mean Platelet Vol. 9.3 fl (6.2-12.0); Monocyte# 0.65 X10^3/uL; Monocyte% 7.9 % (0-10); NRBC Flagged by Analyzer 0 % (0-5); Neutrophil # 6.57 X10^3/uL (2.7-7.7); Neutrophil % 79.3 % (47-70); Platelet Count 330 K/mm3 (150-450); RBC Distribution Width CV 12.1 % (11.6-14.6); Red Blood Count 5.43 M/mm3 (4.6-6.2); White Blood Count 8.3 K/mm3 (4.4-11.0)
--- NOTE | 2021-03-13 20:33 | CM.ED ---
JOSSELIN Note Referral Source: Case Find Referral Reason: TAMERA Gong met with patient in his room. Patient reports desire to detox. Patient voices he has been drinking 18 beers a day. Patient was asked if his drinking has increased lately or if the 18 beers/day is his normal and he indicated it was his normal amount of drinking. Patient said that his last drink was last night. Patient said that he understands that his belongings will be locked, no visitors or phone calls and he would need to sign a contract for detox and patient was in agreement with the program. JOSSELIN called Jeanne at [facility]. SW made referral to the treatment navigator, Jeanne. Jeanne said that Emily would follow up on Saturday. No further JOSSELIN needs at this time. Uyen PRICE
[2021-03-13 20:37] LABS: International Normalized Ratio 1.1
[2021-03-13 20:46] LABS: ALB/GLOB Ratio 1.3 RATIO (0.9-2.4); AST(SGOT) 45 U/L (15-37); Alanine Aminotransfer ALT/SGPT 70 U/L (16-61); Albumin, Serum 4.4 g/dL (3.2-5.0); Alkaline Phosphatase 91 U/L (45-117); Anion Gap 18 (5-15); BUN 9 mg/dL (7-18); BUN/Creat Ratio 6.5 RATIO (10-20); Calcium,Total 9.6 mg/dL (8.5-10.1); Chloride 95 mmol/L (98-107); Creatinine, Serum 1.38 mg/dL (0.70-1.30); EST Glomerular Filtration Rate 64 mL/min (>60); Est Glom Filt Rate - Afr Amer 77 mL/min (>60); Estimated Creatinine Clearance 83.36 ml/min; Globulin 3.4 g/dL (2.2-4.2); Glucose 142 mg/dL (74-106); Potassium 3.3 mmol/L (3.5-5.1); Protein, Total 7.8 g/dL (6.4-8.2); Sodium Level 135 mmol/L (136-145)
--- NOTE | 2021-03-13 20:59 | PCM.HP.STD ---
HPI - General General Date of Admission: 03/13/21 Date of Service: 03/13/21 Chief Complaint: Desire for detoxification HPI Narrative SIA SPARKS, is a 30 M wiith a significant history of anxiety disorder; hypertension; and alcoholism who presents to emergency department for desire for detoxification. Patient reports withdrawal symptoms of light tremors; nausea and vomiting. Patient reports drinking since he was in high school. He drinks 18 of more of regular beers. He drinks until he passes out. Patient was in our hospital alcohol detoxification program and was discharged on 01/26/2021. He reported that his grandfather about 2 weeks ago. Since his grandfather he began to drink again. [facility] Medical History (Updated 03/13/21 @ 21:[address] Josemanuel Potter MD) Asthma Hypertension Hypertension Home Medications lisinopril 10 mg PO DAILY 01/21/21 [History Last Taken 01/17/21] multivit with [id number] 1 each PO DAILY 01/21/21 [History Last Taken Unknown] fluoxetine 40 mg DAILY 03/13/21 [History Last Taken Unknown] Allergy/AdvReac Type Severity Reaction Status Date / Time Penicillins Allergy Intermediate Rash Verified 03/13/21 19:55 Family History (Updated 03/13/21 @ 21:[address] Josemanuel Potter MD) Father Alcoholism in family member Surgical History (Updated 03/13/21 @ 21:[address] Josemanuel Potter MD) History of appendectomy History of tonsillectomy Social History (Updated 03/13/21 @ 21:[address] Josemanuel Potter MD) Smoking Status: Current every day smoker tobacco type: smokeless tobacco Smokeless tobacco user: chewing tobacco alcohol intake: current alcohol intake frequency: 3 or more drinks per day Alcohol type: beer substance use type: does not use ROS ROS Narrative 12 point review of system is negative except as stated in HPI Vital Signs Vital Signs Vital Signs: 03/13/21 19:53 03/13/21 20:12 Temperature 97.6 F L 97.2 F L Temperature Source Temporal Temporal Pulse Rate 133 H 101 H Respiratory Rate 16 14 Blood Pressure 143/78 H Blood Pressure Mean 99 Pulse Ox 100 98 Oxygen Delivery Method Room Air Room Air Weight Weight: 90.718 kg Body Mass Index (BMI) 27.8 Physical Exam Narrative Alert and oriented x3 Nontraumatic; normocephalic Lung clear to auscultate Heart sounds S1-S2. No murmur, gallop or rubs. Abdomen bowel sounds present soft, nontender nondistended Extremity without edema cyanosis or clubbing. Results Lab / Micro Data Result Diagrams: 03/13/21 20:15 03/13/21 20:15 Labs: Laboratory Results - last 24 hr 03/13/21 03/13/21 03/13/21 20:03 20:15 20:15 WBC 8.3 RBC 5.43 Hgb 17.1 H Hct 47.4 MCV 87.3 MCH 31.5 MCHC 36.1 H RDW Std Deviation 38.0 RDW Coeff of Thais 12.1 Plt Count 330 MPV 9.3 Immature Gran % (Auto) 0.400 Neut % (Auto) 79.3 H Lymph % (Auto) 11.9 L [place] % (Auto) 7.9 Eos % (Auto) 0.0 Baso % (Auto) 0.5 Absolute Neuts (auto) 6.6 Absolute Lymphs (auto) 0.98 Nucleated RBC % 0 PT 14.0 INR 1.1 Sodium Potassium Chloride Carbon Dioxide Anion Gap BUN Creatinine Estim Creat Clear Calc Est GFR (MDRD) Af Amer Est GFR (MDRD) Non-Af BUN/Creatinine Ratio Glucose Calcium Total Bilirubin AST ALT Alkaline Phosphatase Total Protein Albumin Globulin Albumin/Globulin Ratio Urine Opiates Screen NEGATIVE Urine Methadone Screen NEGATIVE Ur Barbiturates Screen NEGATIVE Ur Phencyclidine Scrn NEGATIVE Ur Amphetamines Screen NEGATIVE U Methamphetamin-MDMA NEGATIVE U Benzodiazepines Scrn NEGATIVE Urine Cocaine Screen NEGATIVE U Cannabinoids Screen NEGATIVE Ur Drug Screen Comment Ethyl Alcohol 03/13/21 03/13/21 20:15 20:15 WBC RBC Hgb Hct MCV MCH MCHC RDW Std Deviation RDW Coeff of Thais Plt Count MPV Immature Gran % (Auto) Neut % (Auto) Lymph % (Auto) [place] % (Auto) Eos % (Auto) Baso % (Auto) Absolute Neuts (auto) Absolute Lymphs (auto) Nucleated RBC % PT INR Sodium 135 L Potassium 3.3 L Chloride 95 L Carbon Dioxide 22.0 Anion Gap 18 H BUN 9 Creatinine 1.38 H Estim Creat Clear Calc 83.36 Est GFR (MDRD) Af Amer 77 Est GFR (MDRD) Non-Af 64 BUN/Creatinine Ratio 6.5 L Glucose 142 H Calcium 9.6 Total Bilirubin 1.00 AST 45 H ALT 70 H Alkaline Phosphatase 91 Total Protein 7.8 Albumin 4.4 Globulin 3.4 Albumin/Globulin Ratio 1.3 Urine Opiates Screen Urine Methadone Screen Ur Barbiturates Screen Ur Phencyclidine Scrn Ur Amphetamines Screen U Methamphetamin-MDMA U Benzodiazepines Scrn Urine Cocaine Screen U Cannabinoids Screen Ur Drug Screen Comment Ethyl Alcohol 12.0 Assessment & Plan Assessment/Plan (1) Desire for detoxification: (2) Alcohol abuse: (3) Alcohol withdrawal: QUALIFIERS: Complication of substance-induced condition: uncomplicated Qualified Code(s): F10.230 - Alcohol dependence with withdrawal, uncomplicated (4) Tobacco abuse: PLAN: The patient is a 30 year old M with a significant history of alcoholism; anxiety disoder; HTN and tobacco abuse who presents emergency department with alcohol withdrawal symptoms and is requesting detoxification Alcohol dependence and desire for detoxification Patient be started on phenobarbital and other adjunctive medications: Gabapentin as needed; dicyclomine as needed; Vistaril as needed; Imodium as needed; trazodone as needed; Zofran as needed; scheduled thiamine; and schedule folic acid. Monitor CIWA score Tobacco abuse Emergency department labs reviewed showed erythrocytosis. Likely secondary to tobacco use. Counseled Nicotine patch prescribed. Hypokalemia Potassium of 3.3. Likely secondary to alcoholism. Replace. Check magnesium. Hypertension Blood pressure is not within goal Lisinopril continued. Trend blood pressure and adjust blood pressure medications. Depression Fluoxetine continued DVT prophylaxis Low risk Encourage to ambulate Charges/Coding Visit Charges Inpatient E&M: 20034 Init Hosp L3
[2021-03-13 21:01] VITALS: BP 146/95; PULSE 105; PULSE 107; RESP 15; TEMP 36.6; O2SAT 98
[2021-03-13 21:46] VITALS: BMI 26.4
[2021-03-13 21:47] VITALS: BP 165/92; PULSE 107; RESP 18; TEMP 36.7; O2SAT 100
[2021-03-13 21:54] LABS: Magnesium 1.5 mg/dL (1.6-2.6)
[2021-03-13] MEDS: traZODone 100 MG Tablet PO (22:14)
[2021-03-13] MEDS: Phenobarbital 32.4 MG Tablet 64.8 MG PO (22:14)
[2021-03-13] MEDS: Lisinopril 10 MG Tablet PO (22:15)
[2021-03-13] MEDS: hydrOXYzine PAM 25 MG Capsule 50 MG PO (22:15)
[2021-03-13] MEDS: Potassium Chloride Oral Tablet 20 MEQ 40 MEQ PO (22:15)
[2021-03-13 22:36] VITALS: O2SAT 98
[2021-03-14] VITALS (7 sets, daily range): BP systolic 135–158; BP diastolic 78–98; PULSE 93–118; RESP 16–18; TEMP 36.4–36.9; O2SAT 98–100
[2021-03-14] MEDS: Phenobarbital 32.4 MG Tablet 64.8 MG PO ×6 (02:32→21:33)
[2021-03-14] MEDS: hydrOXYzine PAM 25 MG Capsule 50 MG PO ×3 (02:32→14:28)
[2021-03-14] MEDS: Loperamide 2 MG Capsule PO ×2 (07:49→18:27)
[2021-03-14] MEDS: Dicyclomine 10 MG Capsule 20 MG PO ×2 (07:49→14:28)
--- NOTE | 2021-03-14 08:50 | CASEMGMT ---
Social Work Note JOSSELIN received message from Afia at [facility] stating she spoke with pre-cert and pt is self-pay as pt's insurance has terminated. JOSSELIN reviewed [facility] notes, pt's [place] insurance termed 03/06/2021. Afia Doss [employer], WELT DRAWER
[2021-03-14 08:56] LABS: ALB/GLOB Ratio 1.2 RATIO (0.9-2.4); AST(SGOT) 36 U/L (15-37); Alanine Aminotransfer ALT/SGPT 54 U/L (16-61); Albumin, Serum 3.5 g/dL (3.2-5.0); Alkaline Phosphatase 95 U/L (45-117); Anion Gap 12 (5-15); BUN 7 mg/dL (7-18); BUN/Creat Ratio 6.1 RATIO (10-20); Calcium,Total 8.7 mg/dL (8.5-10.1); Chloride 98 mmol/L (98-107); Creatinine, Serum 1.15 mg/dL (0.70-1.30); EST Glomerular Filtration Rate 79 mL/min (>60); Est Glom Filt Rate - Afr Amer 96 mL/min (>60); Estimated Creatinine Clearance 100.04 ml/min; Glucose 105 mg/dL (74-106); Potassium 3.3 mmol/L (3.5-5.1); Protein, Total 6.5 g/dL (6.4-8.2); Sodium Level 135 mmol/L (136-145)
--- NOTE | 2021-03-14 09:10 | ADDICTION ---
This story writer met with PT to conduct ASAM, MSE, AUDIT assessments and to plan for d/c. PT A+Ox4. All assessments completed, faxed to [facility] and placed in PT's chart. PT plans to f[facility]u with [facility] for assessment and IOP. PT to d/c to home, no transportation needs identified. This story writer will complete form for payment assistance through the [employer] [facility] as PT's insurance has lapsed per [facility] SW.
[2021-03-14] MEDS: Thiamine Hydrochloride 100 MG Tablet PO (09:32)
[2021-03-14] MEDS: Gabapentin 300 MG Capsule PO ×2 (09:33→18:27)
[2021-03-14] MEDS: Multivitamins,Ther W-Minerals Tablet 1 TABLET PO (09:33)
[2021-03-14] MEDS: Folic Acid 1 MG Tablet PO (09:33)
[2021-03-14] MEDS: Lisinopril 10 MG Tablet PO (09:33)
[2021-03-14] MEDS: FLUoxetine 20 MG Capsule 40 MG PO (09:33)
--- NOTE | 2021-03-14 10:34 | CASEMGMT ---
Social Work Note Pt is RAMP pt and per [facility] pt is self-pay. SW in to speak with pt. SW introduced self and role at [facility]. Pt was unaware that his insurance terminated, pt states he just paid his insurance. Pt states his insurance is through [place]. SW encouraged pt to call [employer] [place] when he is discharged from [facility] to inquire why they are telling [facility] that his insurance has terminated. Pt states he will do so. SW provided pt with [facility] number to call once he speaks with Yumiko about his insurance. Pt states he is currently not working. JOSSELIN provided pt with financial resources including HCAP application, Medicaid Application, [employer], Samantha Kang, [facility], RX assistance programs, [facility]. Pt thanked this worker, denied additional needs or concerns at this time. Emily with [employer] to complete financial assistance paperwork with pt through the [place] [place]. Afia Doss [employer], [employer]
[2021-03-14 12:21] LABS: Magnesium 1.7 mg/dL (1.6-2.6)
--- NOTE | 2021-03-14 12:40 | PCM.PN.HOSP ---
Subjective Subjective Patient was seen and examined. Denied any new complaints. No acute events overnight. Objective Data Objective Data Vital Signs: Vital Signs Temp Pulse Resp BP Pulse Ox 98.1 F 93 18 147/78 H 98 03/14/21 09:24 03/14/21 09:24 03/14/21 09:24 03/14/21 09:24 03/14/21 09:24 Oxygen Delivery Method Room Air Weight: 86.183 kg Body Mass Index (BMI) 26.4 Intake & Output: Intake and Output for Last 24 Hours 03/12/21 03/13/21 03/14/21 23:59 23:59 23:59 Intake Total 500 / 500 500 / 500 Balance 500 / 500 500 / 500 Lab / Micro Data Result Diagrams: 03/13/21 20:15 03/14/21 08:14 Labs: Laboratory Results - last 24 hr 03/13/21 03/13/21 03/13/21 20:03 20:15 20:15 WBC 8.3 RBC 5.43 Hgb 17.1 H Hct 47.4 MCV 87.3 MCH 31.5 MCHC 36.1 H RDW Std Deviation 38.0 RDW Coeff of Thais 12.1 Plt Count 330 MPV 9.3 Immature Gran % (Auto) 0.400 Neut % (Auto) 79.3 H Lymph % (Auto) 11.9 L [place] % (Auto) 7.9 Eos % (Auto) 0.0 Baso % (Auto) 0.5 Absolute Neuts (auto) 6.6 Absolute Lymphs (auto) 0.98 Nucleated RBC % 0 PT 14.0 INR 1.1 Sodium Potassium Chloride Carbon Dioxide Anion Gap BUN Creatinine Estim Creat Clear Calc Est GFR (MDRD) Af Amer Est GFR (MDRD) Non-Af BUN/Creatinine Ratio Glucose Calcium Magnesium Total Bilirubin AST ALT Alkaline Phosphatase Total Protein Albumin Globulin Albumin/Globulin Ratio Urine Opiates Screen NEGATIVE Urine Methadone Screen NEGATIVE Ur Barbiturates Screen NEGATIVE Ur Phencyclidine Scrn NEGATIVE Ur Amphetamines Screen NEGATIVE U Methamphetamin-MDMA NEGATIVE U Benzodiazepines Scrn NEGATIVE Urine Cocaine Screen NEGATIVE U Cannabinoids Screen NEGATIVE Ur Drug Screen Comment Ethyl Alcohol 03/13/21 03/13/21 03/13/21 20:15 20:15 21:32 WBC RBC Hgb Hct MCV MCH MCHC RDW Std Deviation RDW Coeff of Thais Plt Count MPV Immature Gran % (Auto) Neut % (Auto) Lymph % (Auto) [place] % (Auto) Eos % (Auto) Baso % (Auto) Absolute Neuts (auto) Absolute Lymphs (auto) Nucleated RBC % PT INR Sodium 135 L Potassium 3.3 L Chloride 95 L Carbon Dioxide 22.0 Anion Gap 18 H BUN 9 Creatinine 1.38 H Estim Creat Clear Calc 83.36 Est GFR (MDRD) Af Amer 77 Est GFR (MDRD) Non-Af 64 BUN/Creatinine Ratio 6.5 L Glucose 142 H Calcium 9.6 Magnesium 1.5 L Total Bilirubin 1.00 AST 45 H ALT 70 H Alkaline Phosphatase 91 Total Protein 7.8 Albumin 4.4 Globulin 3.4 Albumin/Globulin Ratio 1.3 Urine Opiates Screen Urine Methadone Screen Ur Barbiturates Screen Ur Phencyclidine Scrn Ur Amphetamines Screen U Methamphetamin-MDMA U Benzodiazepines Scrn Urine Cocaine Screen U Cannabinoids Screen Ur Drug Screen Comment Ethyl Alcohol 12.0 03/14/21 03/14/21 08:14 08:14 WBC RBC Hgb Hct MCV MCH MCHC RDW Std Deviation RDW Coeff of Thais Plt Count MPV Immature Gran % (Auto) Neut % (Auto) Lymph % (Auto) [place] % (Auto) Eos % (Auto) Baso % (Auto) Absolute Neuts (auto) Absolute Lymphs (auto) Nucleated RBC % PT INR Sodium 135 L Potassium 3.3 L Chloride 98 Carbon Dioxide 25.0 Anion Gap 12 BUN 7 Creatinine 1.15 Estim Creat Clear Calc 100.04 Est GFR (MDRD) Af Amer 96 Est GFR (MDRD) Non-Af 79 BUN/Creatinine Ratio 6.1 L Glucose 105 Calcium 8.7 Magnesium 1.7 Total Bilirubin 0.80 AST 36 ALT 54 Alkaline Phosphatase 95 Total Protein 6.5 Albumin 3.5 Globulin 3.0 Albumin/Globulin Ratio 1.2 Urine Opiates Screen Urine Methadone Screen Ur Barbiturates Screen Ur Phencyclidine Scrn Ur Amphetamines Screen U Methamphetamin-MDMA U Benzodiazepines Scrn Urine Cocaine Screen U Cannabinoids Screen Ur Drug Screen Comment Ethyl Alcohol Physical Exam Narrative Physical exam: General: Alert, Oriented x3, Cooperative, No apparent distress, Well developed HEENT: Atraumatic Oral: Moist Mucosa Neck: Supple Lungs: Clear to auscultation Cardiovascular: HS I+II, regular, no murmurs Abdomen: Bowel Sounds Present, Soft, Non Tender Extremities: No edema Skin: No rashes, No breakdown Neurological: Grossly intact Psych/Mental Status: Appropriate Assessment & Plan Assessment/Plan (1) Desire for detoxification: (2) Alcohol abuse: (3) Alcohol withdrawal: QUALIFIERS: Complication of substance-induced condition: uncomplicated Qualified Code(s): F10.230 - Alcohol dependence with withdrawal, uncomplicated (4) Tobacco abuse: PLAN: 1. Acute alcohol withdrawal, last CIWA score was 6, On phenobarb taper, continue on folic acid, multivitamin, thiamine 2. Hypokalemia/hypomagnesemia, replace, recheck in a.m. 3. Nicotine dependence, advised to quit, will continue on replacement 4. Hypertension, not controlled, will increase lisinopril to 20 mg daily Charges/Coding Visit Charges Inpatient E&M: 73785 Subs Hosp L2
[2021-03-14] MEDS: Potassium Chloride Oral Tablet 20 MEQ 60 MEQ PO (14:28)
[2021-03-14] MEDS: Magnesium Chloride 64 MG Delay Rel.Tablet 128 MG PO ×2 (14:29→21:33)
--- NOTE | 2021-03-14 16:29 | CHAPLAIN ---
Type of Pastoral Visit _x__ Initial Visit ___ Follow-up Visit ___ On-call Visit ___ General Patient Visit ___ Spiritual Assessment ___ Family Conference ___ Bereavement ___ Rapid Response ___ Code Blue ___ Other (describe below) Pastoral Care Referral From _x__ Patient ___ Family ___ Nurse ___ Physician ___ Executive Producer [employer] ___ Manager [place] ___ Other (describe below) Sacrament/Intervention _x__ Active listening ___ Anointing ___ Restoration _x__ Bereavement ___ Communion _x__ Sarah exploration ___ _x__ Life review _x__ Prayer ___ Reconciliation ___ Sacrament of Sick _x__ Supportive presence ___ Wedding ___ Other (describe below) Pastoral Comments this patient was seen in a previous admission for detox and was seen at the recent of his grandfather that occurred at this hospital; pt states that he began drinking again after grandfather's ; listening and giving support for grief and coping; review of the pt's islam support and family support; presence and affirmation given for recovery; prayer welcomed
[2021-03-14] MEDS: traZODone 100 MG Tablet PO (21:33)
[2021-03-15] MEDS: Phenobarbital 32.4 MG Tablet 64.8 MG PO ×6 (01:50→21:42)
[2021-03-15] MEDS: Dicyclomine 10 MG Capsule 20 MG PO (01:50)
[2021-03-15 01:51] VITALS: BP 147/90; PULSE 106; RESP 16; TEMP 36.6; O2SAT 98
[2021-03-15] MEDS: Gabapentin 300 MG Capsule PO (05:54)
[2021-03-15 06:52] LABS: ALB/GLOB Ratio 1.2 RATIO (0.9-2.4); AST(SGOT) 40 U/L (15-37); Alanine Aminotransfer ALT/SGPT 49 U/L (16-61); Alkaline Phosphatase 102 U/L (45-117); Anion Gap 6 (5-15); BUN 10 mg/dL (7-18); Calcium,Total 8.2 mg/dL (8.5-10.1); Chloride 106 mmol/L (98-107); EST Glomerular Filtration Rate 93 mL/min (>60); Est Glom Filt Rate - Afr Amer 112 mL/min (>60); Estimated Creatinine Clearance 115.04 ml/min; Globulin 2.6 g/dL (2.2-4.2); Glucose 94 mg/dL (74-106); Magnesium 2.1 mg/dL (1.6-2.6); Potassium 4.1 mmol/L (3.5-5.1); Protein, Total 5.6 g/dL (6.4-8.2); Sodium Level 137 mmol/L (136-145)
[2021-03-15 06:58] VITALS: O2SAT 97
[2021-03-15] MEDS: Multivitamins,Ther W-Minerals Tablet 1 TABLET PO (08:43)
[2021-03-15] MEDS: Thiamine Hydrochloride 100 MG Tablet PO (08:43)
[2021-03-15] MEDS: Folic Acid 1 MG Tablet PO (08:43)
[2021-03-15] MEDS: Magnesium Chloride 64 MG Delay Rel.Tablet 128 MG PO ×2 (08:43→21:42)
[2021-03-15 08:47] VITALS: BP 134/88; PULSE 93; RESP 16; TEMP 36.5; O2SAT 100
[2021-03-15] MEDS: Lisinopril 20 MG Tablet PO (10:11)
[2021-03-15] MEDS: FLUoxetine 20 MG Capsule 40 MG PO (10:11)
--- NOTE | 2021-03-15 10:24 | PCM.PN.HOSP ---
Subjective Subjective Patient was seen and examined. No acute events. No new complaints. Objective Data Objective Data Vital Signs: Vital Signs Temp Pulse Resp BP Pulse Ox 97.7 F L 93 16 134/88 H 100 03/15/21 08:47 03/15/21 08:47 03/15/21 08:47 03/15/21 08:47 03/15/21 08:47 Oxygen Delivery Method Room Air Weight: 86.183 kg Body Mass Index (BMI) 26.4 Intake & Output: Intake and Output for Last 24 Hours 03/13/21 03/14/21 03/15/21 23:59 23:59 23:59 Intake Total 500 / 500 500 / 500 Balance 500 / 500 500 / 500 Lab / Micro Data Result Diagrams: 03/13/21 20:15 03/15/21 05:45 Labs: Laboratory Results - last 24 hr 03/14/21 03/15/21 08:14 05:45 Sodium 137 Potassium 4.1 Chloride 106 Carbon Dioxide 25.0 Anion Gap 6 BUN 10 Creatinine 1.00 Estim Creat Clear Calc 115.04 Est GFR (MDRD) Af Amer 112 Est GFR (MDRD) Non-Af 93 BUN/Creatinine Ratio 10.0 Glucose 94 Calcium 8.2 L Magnesium 1.7 2.1 Total Bilirubin 0.40 AST 40 H ALT 49 Alkaline Phosphatase 102 Total Protein 5.6 L Albumin 3.0 L Globulin 2.6 Albumin/Globulin Ratio 1.2 Physical Exam Narrative Physical exam: General: Alert, Oriented x3, Cooperative, No apparent distress, Well developed HEENT: Atraumatic Oral: Moist Mucosa Neck: Supple Lungs: Clear to auscultation Cardiovascular: HS I+II, regular, no murmurs Abdomen: Bowel Sounds Present, Soft, Non Tender Extremities: No edema Skin: No rashes, No breakdown Neurological: Grossly intact Psych/Mental Status: Appropriate Assessment & Plan Assessment/Plan (1) Desire for detoxification: (2) Alcohol abuse: (3) Alcohol withdrawal: QUALIFIERS: Complication of substance-induced condition: uncomplicated Qualified Code(s): F10.230 - Alcohol dependence with withdrawal, uncomplicated (4) Tobacco abuse: PLAN: 1. Acute alcohol withdrawal, improving, continue on phenobarb taper, folic acid, multivitamin, thiamine 2. Hypokalemia/hypomagnesemia, resolved 3. Nicotine dependence, advised to quit, continue on replacement 4. Hypertension, controlled,continue on lisinopril 20 mg daily Charges/Coding Visit Charges Inpatient E&M: 14040 Subs Hosp L2
[2021-03-15 14:10] VITALS: BP 119/72; PULSE 98; RESP 16; TEMP 36.5; O2SAT 100
[2021-03-15 18:06] VITALS: BP 143/72; PULSE 99; RESP 16; TEMP 36.7; O2SAT 100
[2021-03-15 21:40] VITALS: BP 133/70; PULSE 94; RESP 16; TEMP 36.6; O2SAT 99
[2021-03-15] MEDS: traZODone 100 MG Tablet PO (21:42)
[2021-03-16 01:50] VITALS: BP 163/77; PULSE 70; RESP 16; TEMP 36.6; O2SAT 98
[2021-03-16] MEDS: Phenobarbital 32.4 MG Tablet 64.8 MG PO ×3 (01:51→12:06)
[2021-03-16 08:47] VITALS: BP 138/79; PULSE 103; RESP 16; TEMP 36.8; O2SAT 98
[2021-03-16] MEDS: Thiamine Hydrochloride 100 MG Tablet PO (08:57)
[2021-03-16] MEDS: Folic Acid 1 MG Tablet PO (08:57)
[2021-03-16] MEDS: Multivitamins,Ther W-Minerals Tablet 1 TABLET PO (08:57)
[2021-03-16] MEDS: Magnesium Chloride 64 MG Delay Rel.Tablet 128 MG PO (08:57)
[2021-03-16] MEDS: FLUoxetine 20 MG Capsule 40 MG PO (08:58)
[2021-03-16] MEDS: Lisinopril 20 MG Tablet PO (08:58)
--- NOTE | 2021-03-16 11:10 | PCM.DC ---
Discharge Instructions Diet Discharge Diet: 2000 mg Sodium Diet Activity Discharge Activity: Return to Normal Activity Follow Up Care Test Results: Test results from this visit will be discussed in further detail at your follow-up appointment, if applicable. Discharge Plan Admission Admit Date/Time: 03/13/21 20:58 Primary Reason for Your Visit: Acute alcohol withdrawal Attending Provider: Kecia Mack Primary Care Provider: Nayan Blackwell Instructions Additional Instructions / Restrictions: You are strongly advised to avoid alcohol or use of any illicit drug. Avoid smoking. Follow-up with your outpatient rehab program as scheduled. Discharge Orders/Prescriptions Prescriptions: New lisinopril 20 mg Tablet 20 mg PO DAILY 30 Days Qty: 30 RF: 0 thiamine HCl (vitamin B1) [Vitamin B-1] 100 mg Tablet 100 mg PO DAILYCM 30 Days Qty: 30 RF: 0 Continued multivit with [id number] 1 EACH tablet 1 each PO DAILY RF: 0 fluoxetine 20 mg capsule 40 mg PO DAILY RF: 0 Discontinued lisinopril 10 MG tablet 10 mg PO DAILY RF: 0 Referrals / Follow Up: Nayan Blackwell MD [Primary Care Provider] - Within 2 Weeks Disposition Disposition (needs filled in before D/C Order can be placed): Home, self care
--- NOTE | 2021-03-16 11:20 | PCM.DC.SUM ---
Providers Date of Admission: 03/13/21 Date of Discharge: 03/16/21 Primary Care Physician: Dr. Nayan Blackwell MD Reason For Visit: DESIRE FOR DETOXIFICATION Diagnosis Discharge Diagnosis (1) Desire for detoxification: Status: Resolved (2) Alcohol abuse: Status: Chronic Code(s): F10.10 - Alcohol abuse, uncomplicated (3) Alcohol withdrawal: Status: Resolved Code(s): F10.239 - Alcohol dependence with withdrawal, unspecified Qualifiers: Complication of substance-induced condition: uncomplicated Qualified Code(s): F10.230 - Alcohol dependence with withdrawal, uncomplicated (4) Tobacco abuse: Status: Chronic Code(s): Z72.0 - Tobacco use (5) Hypertension: Status: Chronic Code(s): I10 - Essential (primary) hypertension Medications at Discharge Home Medications multivit with [id number] 1 each PO DAILY 01/21/21 fluoxetine 40 mg PO DAILY 03/13/21 lisinopril 20 mg PO DAILY 30 Days #30 tab 03/16/21 thiamine HCl (vitamin B1) [Vitamin B-1] 100 mg PO DAILYCM 30 Days #30 tab 03/16/21 Hospital Course Summary of Care Provided Minutes Spent on Discharge: 40 Hospital Course: 30-year-old male with past medical history with hypertension, chronic alcohol abuse, anxiety disorder who comes in requesting for medical stabilization from acute alcohol withdrawal. Patient had complained of tremors, nausea and vomiting. He admits to drinking more than 18 bottles of regular beer. He was admitted to the Med[facility] floor and managed on the acute alcohol withdrawal protocol with improvement. Physical Exam Narrative Physical exam: General: Alert, Oriented x3, Cooperative, No apparent distress, Well developed HEENT: Atraumatic Oral: Moist Mucosa Neck: Supple Lungs: Clear to auscultation Cardiovascular: HS I+II, regular, no murmurs Abdomen: Bowel Sounds Present, Soft, Non Tender Extremities: No edema Skin: No rashes, No breakdown Neurological: Grossly intact Psych/Mental Status: Appropriate Weight / BMI Weight Weight: 86.183 kg Body Mass Index (BMI) 26.4 ABG / Lab / Microbiology Data Result Diagrams: 03/13/21 20:15 03/15/21 05:45 D/C Instructions Discharge Diet: 2000 mg Sodium Diet Discharge Activity: Return to Normal Activity Meaningful Use Info Meaningful Use Diagnoses (Choose all that apply): None applicable Discharge Plan Admission Admit Date/Time: 03/13/21 20:58 Primary Reason for Your Visit: Acute alcohol withdrawal Attending Provider: Kecia Mack Primary Care Provider: Nayan Blackwell Instructions Additional Instructions / Restrictions: You are strongly advised to avoid alcohol or use of any illicit drug. Avoid smoking. Follow-up with your outpatient rehab program as scheduled. Discharge Orders/Prescriptions Prescriptions: New lisinopril 20 mg Tablet 20 mg PO DAILY 30 Days Qty: 30 RF: 0 thiamine HCl (vitamin B1) [Vitamin B-1] 100 mg Tablet 100 mg PO DAILYCM 30 Days Qty: 30 RF: 0 Continued multivit with [id number] 1 EACH tablet 1 each PO DAILY RF: 0 fluoxetine 20 mg capsule 40 mg PO DAILY RF: 0 Discontinued lisinopril 10 MG tablet 10 mg PO DAILY RF: 0 Referrals / Follow Up: Nayan Blackwell MD [Primary Care Provider] - Within 2 Weeks Disposition Disposition (needs filled in before D/C Order can be placed): Home, self care Charges/Coding Visit Charges Inpatient E&M: 32291 Disch Hosp
--- NOTE | 2021-03-16 11:43 | CHAPLAIN ---
Type of Pastoral Visit ___ Initial Visit _x__ Follow-up Visit ___ On-call Visit ___ General Patient Visit ___ Spiritual Assessment ___ Family Conference ___ Bereavement ___ Rapid Response ___ Code Blue ___ Other (describe below) Pastoral Care Referral From _x__ Patient ___ Family ___ Nurse ___ Physician ___ Banquet Director ___ Jet Wiper ___ Other (describe below) Sacrament/Intervention _x__ Active listening ___ Anointing ___ Restorationist ___ Bereavement ___ Communion ___ Sarah exploration ___ ___ Life review ___ Prayer ___ Reconciliation ___ Sacrament of Sick _x__ Supportive presence ___ Wedding ___ Other (describe below) Pastoral Comments
[2021-03-16 13:20] VITALS: BP 145/77; PULSE 108; RESP 16; TEMP 36.8; O2SAT 99
== END 2021-03-16 13:00 | disposition home or self-care (01) | DRG 897 ==
LOC: ED 20:27 → MS3 21:19
PROVIDERS: Admitting Provider Hospitalist; Emergency Provider Emergency Medicine; PCP Family Medicine; Visit Provider Internal Medicine
DX: F10.230 Alcohol dependence with withdrawal, uncomplicated (principal); F17.210 Nicotine dependence, cigarettes, uncomplicated; E87.6 Hypokalemia; I10 Essential (primary) hypertension; F32.9 Major depressive disorder, single episode, unspecified; Z79.899 Other long term (current) drug therapy; E83.42 Hypomagnesemia
CPT/HCPCS: 36415; 80053; 80307; 82077; 83735; 85025; 85610; 93005; 99284; 99406; A4216

== ENCOUNTER → 2023-10-24 | Outpatient (CLI) | payer SELFPAY ==
--- OUTSIDE RECORDS SUMMARY | 2023-10-24 11:46 | XMS RPT_ITS | CCD ---
Author Name Unknown Address [address] [place] [address] Organization [facility] Care Team Providers Care Pearl Stringer Name Role Phone Akosua Calvin Unavailable UnavailTODD Mendez Unavailable Unavailable GERALD BONE Unavailable Unavailable TODD CHAPARRO Unavailable Unavailable Allergies Allergy Classification Reported Allergen(s) Allergy Type Date of Onset Reaction(s) Facility (1 source) Penicillins; Translations: [PENICILLINS] Propensity to adverse reactions to drug (disorder) 5 AOF [facility] Repository Results Test Name Value Interpretation Reference Range Facil ity Encounters Encounter Date Encounter Type Care Provider Facility Start: 04-19-2018 End: 05-14-2018 Patient encounter [facility] Start: 12-06-2017 End: 12-07-2017 Emergency department patient visit GERALD BONE Facility:B Start: 10-07-2017 End: 10-07-2017 Emergency department patient visit Akosua Calvin Facility:B Payers Date Payer Category Payer Unknown [id number] 2017 Self-pay Summary Purpose Family History No Family History Records FoundNo Family History Records Found Advance Directives No Advanced Directives Records FoundNo Advanced Directives Records Found Additional Source Comments (unrecognized sect ion and content) No Status Records FoundNo Status Records Found INFORMATION SOURCE (unrecogn ized section and content) DATE CREATED AUTHOR AUTHOR'S JOEL ATION 05/20/2018 [facility] FOR RECORDS PERTAINING TO PATIENTS WHO ARE OR HAVE BEEN ENROLLED IN A CHEMICAL DEPENDENCY/SUBSTANCEABUSE PROGRAM, SOME INFORMATION MAY BE OMITTED. This clinical summary was aggregated from multiple sources. Caution should be exercised in using it in the provision of clinical care. This summary normalizes information from multiple sources, and as a consequence, information in this document may materially change the coding, format and clinical context of patient data. In addition, data may be omitted in some cases. CLINICAL DECISIONS SHOULD BE BASED ON THE PRIMARY CLINICAL RECORDS. [facility] [employer] [facility]. provides no warranty or guarantee of the accuracy or completeness of information in this document.
[2023-10-24 12:55] LABS: Anion Gap 7 (5-15); BUN 12 mg/dL (7-18); BUN/Creat Ratio 11.5 RATIO (10-20); Calcium,Total 9.6 mg/dL (8.5-10.1); Chloride 110 mmol/L (98-107); Cholesterol 276 mg/dL (200); Creatinine, Serum 1.04 mg/dL (0.70-1.30); EST Glomerular Filtration Rate 87 mL/min (>60); Est Glom Filt Rate - Afr Amer 105 mL/min (>60); Glucose 97 mg/dL (74-106); High Density Lipoprotein 95 mg/dL; Potassium 4.1 mmol/L (3.5-5.1); Sodium Level 141 mmol/L (136-145); Triglycerides 118 mg/dL; Very Low Density Lipoprotein 24 mg/dL (5-40)
== END | disposition home or self-care (01) ==
LOC: MTLAB 11:14
PROVIDERS: PCP Family Medicine; Referring Provider Family Medicine; Visit Provider Family Medicine
DX: Z00.00 Encounter for general adult medical examination without abnormal findings (principal)
CPT/HCPCS: 36415; 80048; 80061

== ENCOUNTER 2024-03-03 15:47 | Inpatient (IN) | payer OTHER, SELFPAY ==
[2024-03-03 15:48] VITALS: BP 184/118; PULSE 102; RESP 16; TEMP 36.6; O2SAT 98; BMI 31.4
[2024-03-03 16:18] VITALS: BP 153/104; PULSE 103; RESP 16; O2SAT 95
[2024-03-03 16:32] LABS: Absolute Lymphocyte Count 1.49 X10^3/uL (0.83-4.51); Absolute Neutrophil Count 3.8 X10^3/uL (2.0-7.7); Basophil# 0.06 X10^3/uL; Eosinophils% 1.7 % (0-5); Hematocrit 46.9 % (40-54); Lymphocyte # 1.49 X10^3/ul (0.83-4.51); Lymphocyte % 25.3 % (19-41); Mean Corp Hgb Conc 34.1 g/dL (32-36); Mean Corpuscular Hgb 30.9 pg (27.0-32.0); Mean Corpuscular Volume 90.7 fL (80-94); Mean Platelet Vol. 8.8 fl (6.2-12.0); Monocyte# 0.38 X10^3/uL; Monocyte% 6.5 % (0-10); NRBC Flagged by Analyzer 0 % (0-5); Neutrophil # 3.82 X10^3/uL (2.7-7.7); Platelet Count 265 K/mm3 (150-450); RBC Distribution Width CV 11.6 % (11.6-14.6); RBC Distribution Width SD 38.6 fl (35.1-43.9); Red Blood Count 5.17 M/mm3 (4.6-6.2); White Blood Count 5.9 K/mm3 (4.4-11.0)
--- NOTE | 2024-03-03 16:32 | EX.ED.SAOD ---
HPI History of Present Illness Chief Complaint: Substance Abuse Narrative Narrative: 33-year-old male presenting for alcohol detox. Patient states his last drink was a few hours ago. Patient estimates he drinks 6 or 7 beers today. Typically drinks a case a day. He states he has detoxed in the past. He states originally was doing well but in the family caused him to start drinking again and steadily increased. He does not withdraw when he stops drinking. He does not have any history of withdrawal seizures. States he has a history of hypertension and anxiety. He is currently asymptomatic. [facility] Medical History Asthma Hypertension Hypertension Home Medications ?Medication ?Instructions ?Recorded ?Last Taken ?Type fluoxetine 40 mg capsule 40 mg PO DAILY 03/03/24 03/03/24 History lisinopril 10 mg tablet 10 mg PO DAILY 03/03/24 Unknown History naltrexone 50 mg tablet 50 mg PO DAILY 03/03/24 Unknown History Allergy/AdvReac Type Severity Reaction Status Date / Time Penicillins Allergy Intermediate Rash Verified 03/03/24 15:49 Family History (Updated 03/13/21 @ 21:[address] Josemanuel Potter MD) Father Alcoholism in family member Surgical History History of tonsillectomy History of appendectomy Social History (Updated 03/13/21 @ 21:[address] Josemanuel Potter MD) Smoking Status: Current every day smoker tobacco type: smokeless tobacco Smokeless tobacco user: chewing tobacco alcohol intake: current alcohol intake frequency: 3 or more drinks per day Alcohol type: beer substance use type: does not use ROS ROS ED Constitutional Constitutional ED: Denies chills, fever(s) or sweats Eyes Eyes: Denies blurry vision or change in vision ENT ENT ED: Denies ear pain or sore throat Cardiovascular Cardiovascular: Denies chest pain, palpitations or racing heartbeat Respiratory/Chest Respiratory/Chest: Denies cough, dyspnea or sputum Gastrointestinal Gastrointestinal: Denies abdominal pain, constipation, diarrhea, nausea or vomiting Genitourinary Genitourinary ED: Denies dysuria, hematuria or urinary frequency Musculoskeletal Musculoskeletal: Denies arthralgias, myalgias or neck pain Integumentary Denies abscess, Abrasions or rash Neurologic Neurologic: Denies headache(s), paresthesias or weakness Psychiatric Psychiatric: Denies anxiety, depression, suicidal ideation or suicidal thoughts Endocrine Endocrinology: Denies polydipsia or polyuria EXAM Physical Exam Const Vital Signs: 03/03/24 15:48 03/03/24 16:18 Temperature 98 F Temperature Source Temporal Pulse Rate 102 H 103 H Respiratory Rate 16 16 Blood Pressure 184/118 H 153/104 H Blood Pressure Mean 140 120 Blood Pressure Source Monitor Blood Pressure Position Semi-Fowlers Blood Pressure Location Right Arm Pulse Ox 98 95 Oxygen Delivery Method Room Air Room Air Positive well nourished General Appearance ED: NAD; Negative for pallor HEENT Reports moist mucous membranes Eyes PERRL and EOMs intact bilaterally Resp normal respiratory effort and clear to auscultation bilaterally Cardio regular rate and regular rhythm Neuro oriented x3 and CN's II-XII intact bilaterally Sensorium / Orientation: alert Motor Exam: strength 5/5 throughout Psych mental status grossly normal and thought process normal Skin General Skin Exam: Negative for jaundice or pallor MDM MDM MDM Narrative Medical decision making narrative: Patient presenting for alcohol detox. He states he is currently intoxicated had about 6 or 7 beers today. Typically drinks a case. He is not in withdrawal. Appropriate screening labs were obtained. CBC shows normal white blood cell count of 5.9. Hemoglobin 16. Platelets are normal at 265. Renal function and electrolytes within normal limits. AST 69 and ALT 91 otherwise LFTs are unremarkable. Lipase 53. Urine drug screen negative for any drugs. EtOH 287. Will discuss with the hospitalist for admission. Impression: 1. EtOH intoxication 2. EtOH detox Lab Data Attestation: I reviewed the patient's lab results. Labs: Laboratory Results - last 24 hr 03/03/24 03/03/24 16:05 16:29 WBC 5.9 RBC 5.17 Hgb 16.0 Hct 46.9 MCV 90.7 MCH 30.9 MCHC 34.1 RDW Std Deviation 38.6 RDW Coeff of Thais 11.6 Plt Count 265 MPV 8.8 Immature Gran % (Auto) 0.500 Neut % (Auto) 65.0 Lymph % (Auto) 25.3 Dukes % (Auto) 6.5 Eos % (Auto) 1.7 Baso % (Auto) 1.0 Absolute Neuts (auto) 3.8 Absolute Lymphs (auto) 1.49 Nucleated RBC % 0 Sodium 134 L Potassium 4.0 Chloride 103 Carbon Dioxide 22.0 Anion Gap 9 BUN 10 Creatinine 0.98 Estim Creat Clear Calc 130.56 Est GFR (MDRD) Af Amer 112 Est GFR (MDRD) Non-Af 93 BUN/Creatinine Ratio 10.2 Glucose 96 Calcium 8.8 Total Bilirubin 0.40 AST 69 H ALT 91 H Alkaline Phosphatase 79 Total Protein 7.6 Albumin 3.9 Globulin 3.7 Albumin/Globulin Ratio 1.1 Lipase 53 Urine Opiates Screen NEGATIVE Urine Methadone Screen NEGATIVE Ur Barbiturates Screen NEGATIVE Ur Phencyclidine Scrn NEGATIVE Ur Amphetamines Screen NEGATIVE MDMA (Ecstasy) Screen NEGATIVE U Benzodiazepines Scrn NEGATIVE Urine Cocaine Screen NEGATIVE U Cannabinoids Screen NEGATIVE Ur Drug Screen Comment Ethyl Alcohol 287.0 Discharge Plan Triage Chief Complaint: Substance Abuse ED Provider: Sanchez Garces Dx/Rx/DC Orders Prescriptions: No Action fluoxetine 40 mg capsule 40 mg PO DAILY naltrexone 50 mg tablet 50 mg PO DAILY Patient Comments: PT HAS MED, BUT HAS NOT STARTED TAKING YET lisinopril 10 mg tablet 10 mg PO DAILY Patient Comments: PT TAKES NEEDED Primary Care Provider: Nayan Blackwell Referrals: Nayan Blackwell MD [Primary Care Provider] - Print Language: French
[2024-03-03 16:45] LABS: ALB/GLOB Ratio 1.1 RATIO (0.9-2.4); AST(SGOT) 69 U/L (15-37); Alanine Aminotransfer ALT/SGPT 91 U/L (16-61); Albumin, Serum 3.9 g/dL (3.2-5.0); Alkaline Phosphatase 79 U/L (45-117); Anion Gap 9 (5-15); BUN 10 mg/dL (7-18); BUN/Creat Ratio 10.2 RATIO (10-20); Calcium,Total 8.8 mg/dL (8.5-10.1); Chloride 103 mmol/L (98-107); Creatinine, Serum 0.98 mg/dL (0.70-1.30); EST Glomerular Filtration Rate 93 mL/min (>60); Est Glom Filt Rate - Afr Amer 112 mL/min (>60); Estimated Creatinine Clearance 130.56 ml/min; Globulin 3.7 g/dL (2.2-4.2); Glucose 96 mg/dL (74-106); Lipase 53 U/L (13-75); Protein, Total 7.6 g/dL (6.4-8.2); Sodium Level 134 mmol/L (136-145)
[2024-03-03 16:58] LABS: Amphetamine Urine VISTA NEGATIVE (<1000 ng/mL); Barbiturate Urine VISTA NEGATIVE (< 200 ng/mL); Benzodiazepine Urine VISTA NEGATIVE (< 200 ng/mL); Cocaine Urine VISTA NEGATIVE (< 300 ng/mL); Ecstacy Urine VISTA NEGATIVE (< 500 ng/mL); Methadone Urine VISTA NEGATIVE (< 300 ng/mL); PCP Urine VISTA NEGATIVE (< 25 ng/mL); THC Urine VISTA NEGATIVE (< 50 ng/mL); Vista UDS pH Range 5
--- NOTE | 2024-03-03 17:36 | NURSING ---
MED SURG AGYEPONG ETOH DETOX
[2024-03-03 17:42] VITALS: BP 160/95; PULSE 103; RESP 16; TEMP 36.8; O2SAT 98
--- NOTE | 2024-03-03 18:00 | PCM.HP.STD ---
HPI - General General Date of Admission: 03/03/24 Date of Service: 03/03/24 Chief Complaint: Desire for alcohol detoxification HPI Narrative SIA SPARKS, is a 33 M with a significant history of hypertension, alcoholism, and anxiety disorder who presents for alcohol detoxification. Of note patient's has been drinking over 10 years. Reportedly he drinks about 24 cans of regular size beers each day. He resumed drinking heavily about 2 weeks ago when he quit his job. Also reports that he resumed drinking after he had a family member . Patient had drank about 3 hours prior to presentation so he was not in any withdrawal at the time of history taking. [facility] Medical History Asthma Hypertension Hypertension Home Medications ?Medication ?Instructions ?Recorded ?Last Taken ?Type fluoxetine 40 mg capsule 40 mg PO DAILY 03/03/24 03/03/24 History lisinopril 10 mg tablet 10 mg PO DAILY 03/03/24 Unknown History naltrexone 50 mg tablet 50 mg PO DAILY 03/03/24 Unknown History Allergy/AdvReac Type Severity Reaction Status Date / Time Penicillins Allergy Intermediate Rash Verified 03/03/24 15:49 Family History Father Alcoholism in family member Surgical History History of tonsillectomy History of appendectomy Social History Smoking Status: Current every day smoker tobacco type: smokeless tobacco Smokeless tobacco user: chewing tobacco alcohol intake: current alcohol intake frequency: 3 or more drinks per day Alcohol type: beer substance use type: does not use ROS ROS Narrative Pertinent positives and pertinent negatives as noted in HPI. All other systems were reviewed and are negative Vital Signs Vital Signs Vital Signs: 03/03/24 15:48 03/03/24 16:18 03/03/24 17:42 Temperature 98 F 98.2 F Temperature Source Temporal Pulse Rate 102 H 103 H 103 H Respiratory Rate 16 16 16 Blood Pressure 184/118 H 153/104 H 160/95 H Blood Pressure Mean 140 120 116 Blood Pressure Source Monitor Blood Pressure Position Semi-Fowlers Blood Pressure Location Right Arm Pulse Ox 98 95 98 Oxygen Delivery Method Room Air Room Air Weight Weight: 102.285 kg Body Mass Index (BMI) 31.4 Physical Exam Narrative Physical exam: General: Well-nourished, well-developed. Head: Normocephalic, atraumatic, no tenderness Eyes: Vision is grossly intact. EOMI ENT, no trauma, moist mucous membranes, no rhinorrhea Neck: Nontender, No thyromegaly. CVS: Regular rate and rhythm. S1-S2 present. No murmur, gallop or rub. Respiratory : clear to auscultation bilaterally, chest wall nontender Abdomen: Soft, nontender, nondistended, normal bowel sounds, no masses : Deferred Back: Nontender, no CVA tenderness, no midline spinal tenderness, deformities, step-offs Extremities: Nontender full range of motion, no trauma Skin: Normal color, no trauma, abrasions Neuro: Alert, oriented, cranial nerves II through XII grossly intact. Psychiatry: Normal mood. Normal affect. Not depressed. Not anxious. Results Lab / Micro Data 03/03/24 16:05 03/03/24 16:05 Labs: Laboratory Results - last 24 hr 03/03/24 16:05: WBC 5.9, RBC 5.17, Hgb 16.0, Hct 46.9, MCV 90.7, MCH 30.9, MCHC 34.1, RDW Std Deviation 38.6, RDW Coeff of Thais 11.6, Plt Count 265, MPV 8.8, Immature Gran % (Auto) 0.500, Neut % (Auto) 65.0, Lymph % (Auto) 25.3, Robeson % (Auto) 6.5, Eos % (Auto) 1.7, Baso % (Auto) 1.0, Absolute Neuts (auto) 3.8, Absolute Lymphs (auto) 1.49, Nucleated RBC % 0, Sodium 134 L, Potassium 4.0, Chloride 103, Carbon Dioxide 22.0, Anion Gap 9, BUN 10, Creatinine 0.98, Estim Creat Clear Calc 130.56, Est GFR (MDRD) Af Amer 112, Est GFR (MDRD) Non-Af 93, BUN/Creatinine Ratio 10.2, Glucose 96, Calcium 8.8, Total Bilirubin 0.40, AST 69 H, ALT 91 H, Alkaline Phosphatase 79, Total Protein 7.6, Albumin 3.9, Globulin 3.7, Albumin/Globulin Ratio 1.1, Lipase 53, Ethyl Alcohol 287.0 03/03/24 16:29: Urine Opiates Screen NEGATIVE, Urine Methadone Screen NEGATIVE, Ur Barbiturates Screen NEGATIVE, Ur Phencyclidine Scrn NEGATIVE, Ur Amphetamines Screen NEGATIVE, MDMA (Ecstasy) Screen NEGATIVE, U Benzodiazepines Scrn NEGATIVE, Urine Cocaine Screen NEGATIVE, U Cannabinoids Screen NEGATIVE, Ur Drug Screen Comment Assessment & Plan Assessment/Plan (1) Hypertension: QUALIFIERS: Hypertension type: primary hypertension Qualified Code(s): I10 - Essential (primary) hypertension (2) Tobacco abuse: (3) Alcohol abuse: (4) Anxiety disorder: QUALIFIERS: Anxiety disorder type: generalized anxiety disorder Qualified Code(s): F41.1 - Generalized anxiety disorder PLAN: Plan Alcohol dependence and desire for detoxification Patient be started on phenobarbital and other adjunctive medications: Gabapentin as needed; dicyclomine as needed; Vistaril as needed; Imodium as needed; trazodone as needed; Zofran as needed; scheduled thiamine; and schedule folic acid. Monitor CIWA score. Hypertension Blood pressure is not within goal Home blood pressure medication continued. As needed Catapres ordered. Trend blood pressure and adjust blood pressure medications. Tobacco abuse Counseled DVT prophylaxis Low risk Encourage to ambulate Time spent in the patient's overall evaluation,decision-making process, review of diagnostic data, adjustment of management, discussion with other providers, nursing and ancillary staff involved in patient's care documentation, 70 minutes. Charges/Coding Visit Charges Inpatient E&M: 68432 Init Hosp L3
[2024-03-03 18:37] VITALS: BMI 30.6
[2024-03-03 18:47] VITALS: BP 153/93; PULSE 94; RESP 20; TEMP 37; O2SAT 97
[2024-03-03] MEDS: Phenobarbital 32.4 MG Tablet 64.8 MG PO ×2 (19:14→23:09)
[2024-03-03] MEDS: hydrOXYzine PAM 25 MG Capsule 50 MG PO (22:01)
[2024-03-03] MEDS: 0.9% Saline Lock 10 ML Syringe IV (22:02)
[2024-03-03 23:06] VITALS: BP 143/83; PULSE 106; RESP 18; TEMP 37.1; O2SAT 96
[2024-03-03] MEDS: traZODone 100 MG Tablet PO (23:09)
[2024-03-04 03:22] VITALS: BP 145/80; PULSE 95; RESP 18; TEMP 36.6; O2SAT 97
[2024-03-04] MEDS: Phenobarbital 32.4 MG Tablet 64.8 MG PO ×6 (03:23→22:18)
[2024-03-04 06:42] VITALS: BP 143/91; PULSE 81; RESP 16; TEMP 37; O2SAT 100
[2024-03-04 11:00] VITALS: BP 153/102; PULSE 87; RESP 18; TEMP 36.7; O2SAT 97
--- NOTE | 2024-03-04 11:06 | ADDICTION ---
Pt was met w/to complete a RAMP assessment, AUDIT, DUDIT, Mt. Status, DC Plan, and ASAM. Pt reports he has been struggling with dependence on alcohol for the past ten years. Pt states that he had a in his family and lost his job which led him to drink heavier than just the regular 12 pack a night. Pt plans to get back out on the road as his follow-up plan. Client did report drinking in hotels while he was traveling and we discussed the risks. He reports that he does not plan on drinking at all. He reports he will think about going to AA.
[2024-03-04] MEDS: Thiamine Hydrochloride 100 MG Tablet PO (11:07)
[2024-03-04] MEDS: Folic Acid 1 MG Tablet PO (11:07)
[2024-03-04] MEDS: Lisinopril 10 MG Tablet PO (11:08)
[2024-03-04] MEDS: Fluoxetine HCl 40 MG CAPSULE PO (11:08)
--- NOTE | 2024-03-04 12:55 | PN.HOSP_ITS ---
Reason for Visit Reason for Visit: Diagnoses Alcohol abuse, uncomplicated (03/03/24) Generalized anxiety disorder (03/03/24) Essential (primary) hypertension (03/03/24) Tobacco use (03/03/24) Subjective Subjective Patient admitted yesterday afternoon for alcohol detox. No acute events overnight. Seen bedside this morning. Sitting up comfortably in bed, conversing normally, in no acute distress. Did not appear agitated or somnolent. Stated he felt well this morning, was able to get some sleep last night and has not had any alcohol withdrawal symptoms. No other acute concerns this morning. Objective Data Objective Data Vital Signs: Vital Signs Temp Pulse Resp BP Pulse Ox O2 Del Method 98.0 F 87 18 153/102 H 97 Room Air 03/04/24 11:00 03/04/24 11:00 03/04/24 11:00 03/04/24 11:00 03/04/24 11:00 03/04/24 11:00 Oxygen Delivery Method Room Air Weight: 99.564 kg Body Mass Index (BMI) 30.6 Intake & Output: Intake and Output for Last 24 Hours 03/02/24 03/03/24 03/04/24 23:59 23:59 23:59 Intake Total 1000 / 1000 1000 / 1000 Balance 1000 / 1000 1000 / 1000 Lab / Micro Data 03/03/24 16:05 03/03/24 16:05 Labs: Laboratory Results - last 24 hr 03/03/24 16:05: WBC 5.9, RBC 5.17, Hgb 16.0, Hct 46.9, MCV 90.7, MCH 30.9, MCHC 34.1, RDW Std Deviation 38.6, RDW Coeff of Thais 11.6, Plt Count 265, MPV 8.8, Immature Gran % (Auto) 0.500, Neut % (Auto) 65.0, Lymph % (Auto) 25.3, Villalba % (Auto) 6.5, Eos % (Auto) 1.7, Baso % (Auto) 1.0, Absolute Neuts (auto) 3.8, Absolute Lymphs (auto) 1.49, Nucleated RBC % 0, Sodium 134 L, Potassium 4.0, Chloride 103, Carbon Dioxide 22.0, Anion Gap 9, BUN 10, Creatinine 0.98, Estim Creat Clear Calc 130.56, Est GFR (MDRD) Af Amer 112, Est GFR (MDRD) Non-Af 93, BUN/Creatinine Ratio 10.2, Glucose 96, Calcium 8.8, Total Bilirubin 0.40, AST 69 H, ALT 91 H, Alkaline Phosphatase 79, Total Protein 7.6, Albumin 3.9, Globulin 3.7, Albumin/Globulin Ratio 1.1, Lipase 53, Ethyl Alcohol 287.0 03/03/24 16:29: Urine Opiates Screen NEGATIVE, Urine Methadone Screen NEGATIVE, Ur Barbiturates Screen NEGATIVE, Ur Phencyclidine Scrn NEGATIVE, Ur Amphetamines Screen NEGATIVE, MDMA (Ecstasy) Screen NEGATIVE, U Benzodiazepines Scrn NEGATIVE, Urine Cocaine Screen NEGATIVE, U Cannabinoids Screen NEGATIVE, Ur Drug Screen Comment Physical Exam Const alert, oriented x3 and no apparent distress Constitutional Narrative: Pleasant younger male, obese, sitting up comfortably in bed, conversing normally, in no acute distress. General Appearance: cooperative and comfortable HEENT normocephalic, head/scalp atraumatic, hearing grossly normal bilaterally and nasal mucous membranes and turbinates normal Eyes PERRL, EOMs intact bilaterally and conjunctivae normal Neck full ROM Chest inspection of chest normal Resp normal respiratory effort, normal air movement, no use of accessory muscles and clear to auscultation bilaterally Cardio regular rate, regular rhythm, no murmurs and peripheral pulses 2+ throughout GI normal to inspection, nondistended, normoactive bowel sounds, soft to palpation, non-tender and non-distended Back/Spine normal ROM Extremity normal to inspection, full ROM and no pedal edema Skin no rashes or lesions noted Neuro moves all extremities and no focal motor deficits Speech: speech normal Psych mental status grossly normal Assessment & Plan Assessment/Plan (1) Alcohol abuse: (2) Desire for detoxification: (3) Tobacco abuse: PLAN: Plan Patient is a 33-year-old male who presented [facility] ED on 03/03/2024 for alcohol detoxification. 1. Alcohol abuse with desire for detoxification ? Case management following. Continue phenobarbital taper with as needed medications per alcohol withdrawal order set. Likely home with outpatient follow-up for alcohol abuse on discharge. Chronic medical conditions: ? Obesity: BMI 30 on admit. Encouraged lifestyle modifications. ? Tobacco abuse: Nicotine patch and gum provided per patient request. ? Hypertension: Stable. Continue home lisinopril. ? Anxiety: Stable. Continue home fluoxetine. DVT prophylaxis: Low risk, ambulate CODE STATUS: Full code, verified Expected disposition: Home, 2 to 3 days Total clinical time spent by myself addressing the patient's medical issues, reviewing all the data, and collaborating with patient's care team: 25 minutes. Charges/Coding Visit Charges Inpatient E&M: 52421 Subs Hosp L1
[2024-03-04 15:00] VITALS: BP 153/92; PULSE 92; RESP 18; TEMP 36.7; O2SAT 97
--- NOTE | 2024-03-04 16:14 | CHAPLAIN ---
Type of Pastoral Visit _x__ Initial Visit ___ Follow-up Visit ___ On-call Visit ___ General Patient Visit ___ Spiritual Assessment ___ Family Conference ___ Bereavement ___ Rapid Response ___ Code Blue ___ Other (describe below) Pastoral Care Referral From _x__ Patient ___ Family ___ Nurse ___ Physician ___ Home Health Attendant ___ Machine Sweeper Brush Maker ___ Other (describe below) Sacrament/Intervention _x__ Active listening ___ Anointing ___ Hinduism ___ Bereavement ___ Communion ___ Sarah exploration ___ ___ Life review _x__ Prayer ___ Reconciliation ___ Sacrament of Sick _x__ Supportive presence ___ Wedding ___ Other (describe below) Pastoral Comments at first attempt the patient was sleeping; at second attempt the patient was awake and ordering dinner; pt is remembered from a previous admission for similar situation and few years ago; pt is pleasant and reviews his 'return to alcohol' when he lost his job and got on a drinking binge; pt says he realized he needed to get off alcohol before it got even worse; pt goal is to get through this and get a job OTR which will keep me from drinking because that is not allowed and not safe; pt says he has good relationship with his daughter and the mother of their child; pt has not been in druze since his grandfather and admits he probably should someday go back; prayer is welcomed; no other needs reported
[2024-03-04] MEDS: cloNIDine HCl 0.1 MG Tablet PO (17:58)
[2024-03-04 18:12] VITALS: BP 139/95; PULSE 70; RESP 18; TEMP 36.7; O2SAT 97
[2024-03-04 22:15] VITALS: BP 150/90; PULSE 93; RESP 16; TEMP 36.8; O2SAT 99
[2024-03-04] MEDS: traZODone 100 MG Tablet PO (22:18)
[2024-03-05] VITALS (8 sets, daily range): BP systolic 107–143; BP diastolic 74–98; PULSE 73–88; RESP 15–16; TEMP 36.6–37; O2SAT 95–100
[2024-03-05] MEDS: Phenobarbital 32.4 MG Tablet 64.8 MG PO ×6 (03:54→23:08)
[2024-03-05] MEDS: 0.9% Saline Lock 10 ML Syringe IV (06:37)
[2024-03-05] MEDS: Lisinopril 10 MG Tablet PO (08:29)
[2024-03-05] MEDS: Fluoxetine HCl 40 MG CAPSULE PO (08:29)
[2024-03-05] MEDS: Folic Acid 1 MG Tablet PO (08:29)
[2024-03-05] MEDS: Thiamine Hydrochloride 100 MG Tablet PO (08:29)
--- NOTE | 2024-03-05 11:32 | NURSING ---
pt stated it is ok to give grandmother info.
--- NOTE | 2024-03-05 12:25 | CASEMGMT ---
Social Work- SW met with pt regarding need for community resources d/t self pay at admit. Pt has met with [employer], and began the medicaid application process. Pt denied needing information for utilities, food, prescriptions, finances. Pt reports no needs at this time. JULIAN Jorge
--- NOTE | 2024-03-05 13:08 | PN.HOSP_ITS ---
Reason for Visit Reason for Visit: Diagnoses Alcohol abuse, uncomplicated (03/03/24) Generalized anxiety disorder (03/03/24) Essential (primary) hypertension (03/03/24) Tobacco use (03/03/24) Subjective Subjective No acute events overnight. Patient seen at bedside this morning. Laying comfortably in bed, conversing normally, in no acute distress. Slightly more fatigued this morning than yesterday but otherwise states he is feeling fine. Denies any withdrawal symptoms. No other acute concerns today. Objective Data Objective Data Vital Signs: Vital Signs Temp Pulse Resp BP Pulse Ox O2 Del Method 98 F 75 16 119/85 H 95 Room Air 03/05/24 11:31 03/05/24 11:31 03/05/24 11:31 03/05/24 11:31 03/05/24 11:31 03/05/24 11:31 Oxygen Delivery Method Room Air Weight: 99.564 kg Body Mass Index (BMI) 30.6 Intake & Output: Intake and Output for Last 24 Hours 03/03/24 03/04/24 03/05/24 23:59 23:59 23:59 Intake Total 1000 / 1000 2000 / 3700 3100 / 3100 Balance 1000 / 1000 2000 / 3700 3100 / 3100 Lab / Micro Data 03/03/24 16:05 03/03/24 16:05 Physical Exam Const alert, oriented x3 and no apparent distress Constitutional Narrative: Pleasant younger male, obese, sitting up comfortably in bed, conversing normally, in no acute distress. General Appearance: cooperative and comfortable HEENT normocephalic, head/scalp atraumatic, hearing grossly normal bilaterally and nasal mucous membranes and turbinates normal Eyes PERRL, EOMs intact bilaterally and conjunctivae normal Neck full ROM Chest inspection of chest normal Resp normal respiratory effort, normal air movement, no use of accessory muscles and clear to auscultation bilaterally Cardio regular rate, regular rhythm, no murmurs and peripheral pulses 2+ throughout GI normal to inspection, nondistended, normoactive bowel sounds, soft to palpation, non-tender and non-distended Back/Spine normal ROM Extremity normal to inspection, full ROM and no pedal edema Skin no rashes or lesions noted Neuro moves all extremities and no focal motor deficits Speech: speech normal Psych mental status grossly normal Assessment & Plan Assessment/Plan (1) Alcohol abuse: (2) Desire for detoxification: (3) Tobacco abuse: PLAN: Plan Patient is a 33-year-old male who presented [facility] ED on 03/03/2024 for alcohol detoxification. 1. Alcohol abuse with desire for detoxification ? Case management following. Continue phenobarbital taper with as needed medications per alcohol withdrawal order set. Patient may attend AA meetings going forward, does not desire any outpatient therapy at this time. Planning for home on discharge likely tomorrow. Chronic medical conditions: ? Obesity: BMI 30 on admit. Encouraged lifestyle modifications. ? Tobacco abuse: Nicotine patch and gum provided per patient request. ? Hypertension: Stable. Continue home lisinopril. ? Anxiety: Stable. Continue home fluoxetine. DVT prophylaxis: Low risk, ambulate CODE STATUS: Full code, verified Expected disposition: Home, 1 to 2 days Total clinical time spent by myself addressing the patient's medical issues, reviewing all the data, and collaborating with patient's care team: 25 minutes. Charges/Coding Visit Charges Inpatient E&M: 28940 Subs Hosp L1
[2024-03-05] MEDS: traZODone 100 MG Tablet PO (23:08)
[2024-03-06 02:00] VITALS: BP 119/81; PULSE 89; RESP 15; TEMP 36.6; O2SAT 97
[2024-03-06 04:00] VITALS: BP 119/81; PULSE 89; RESP 15; TEMP 36.6; O2SAT 97
[2024-03-06] MEDS: Phenobarbital 32.4 MG Tablet 64.8 MG PO ×2 (04:10→08:17)
[2024-03-06] MEDS: Gabapentin 300 MG Capsule PO (05:19)
[2024-03-06 06:00] VITALS: BP 119/81; PULSE 89; RESP 15; TEMP 36.6; O2SAT 97
[2024-03-06] MEDS: Folic Acid 1 MG Tablet PO (08:17)
[2024-03-06] MEDS: Thiamine Hydrochloride 100 MG Tablet PO (08:17)
[2024-03-06] MEDS: Lisinopril 10 MG Tablet PO (08:17)
[2024-03-06] MEDS: Fluoxetine HCl 40 MG CAPSULE PO (08:18)
[2024-03-06] MEDS: Acetaminophen 325 MG Tablet 650 MG PO (08:41)
[2024-03-06 09:00] VITALS: BP 144/92; PULSE 98; RESP 14; TEMP 37.7; O2SAT 97
--- NOTE | 2024-03-06 10:52 | DS.PCM_ITS ---
Providers Date of Admission: 03/03/24 Primary Care Physician: Dr. Nayan Blackwell MD Reason For Visit: DESIRE FOR DETOXIFICATION Diagnosis Discharge Diagnosis (1) Alcohol abuse: Status: Chronic Code(s): F10.10 - Alcohol abuse, uncomplicated (2) Desire for detoxification: Status: Resolved (3) Tobacco abuse: Status: Chronic Code(s): Z72.0 - Tobacco use Plan Patient is a 33-year-old male who presented [facility] ED on 03/03/2024 for alcohol detoxification. 1. Alcohol abuse with desire for detoxification ? Case management following. Continue phenobarbital taper with as needed medications per alcohol withdrawal order set. Patient may attend AA meetings going forward, does not desire any outpatient therapy at this time. Planning for home on discharge likely tomorrow. Chronic medical conditions: ? Obesity: BMI 30 on admit. Encouraged lifestyle modifications. ? Tobacco abuse: Nicotine patch and gum provided per patient request. ? Hypertension: Stable. Continue home lisinopril. ? Anxiety: Stable. Continue home fluoxetine. DVT prophylaxis: Low risk, ambulate CODE STATUS: Full code, verified Expected disposition: Home, 1 to 2 days Total clinical time spent by myself addressing the patient's medical issues, reviewing all the data, and collaborating with patient's care team: 25 minutes. Medications at Discharge Home Medications fluoxetine 40 mg capsule 40 mg PO DAILY 03/03/24 lisinopril 10 mg tablet 10 mg PO DAILY 03/03/24 naltrexone 50 mg tablet 50 mg PO DAILY 03/03/24 Weight / BMI Weight Weight: 99.564 kg Body Mass Index (BMI) 30.6 ABG / Lab / Microbiology Data 03/03/24 16:05 03/03/24 16:05 Meaningful Use Info Ischemic Stroke Statin Dosing Therapy Reference: STATIN DOSE THERAPY REFERENCE: * Patients > 75 years receive moderate or high dose statin therapy. * Patients 75 years or YOUNGER should receive HIGH intensity statin dose unless contraindicated. You will be required to document reason for non-treatment if statin daily dose does not meet guidelines. HIGH DOSE STATIN THERAPY DAILY Atorvastatin > than or = to 40 mg Rosuvastatin > than or = to 20 mg Amlodipine + Atorvastatin > than or = to 2.5/40 mg Ezetimibe + Simvastatin 10/80 mg Simvastatin 80mg Discharge Plan Admission Admit Date/Time: 03/03/24 17:56 Attending Provider: Familia Stinson Primary Care Provider: Nayan Blackwell Consulting Providers: Josemanuel Potter Discharge Orders/Prescriptions Prescriptions: No Action fluoxetine 40 mg capsule 40 mg PO DAILY naltrexone 50 mg tablet 50 mg PO DAILY Patient Comments: PT HAS MED, BUT HAS NOT STARTED TAKING YET lisinopril 10 mg tablet 10 mg PO DAILY Patient Comments: PT TAKES NEEDED Referrals / Follow Up: Nayan Blackwell MD [Primary Care Provider] -
--- NOTE | 2024-03-06 10:52 | PCM.DC ---
Discharge Instructions Diet Discharge Diet: No restrictions Activity Discharge Activity: No Restrictions Follow Up Care Test Results: Test results from this visit will be discussed in further detail at your follow-up appointment, if applicable. Discharge Plan Admission Admit Date/Time: 03/03/24 17:56 Primary Reason for Your Visit: Alcohol detox Attending Provider: Familia Stinson Primary Care Provider: Nayan Blackwell Consulting Providers: Josemanuel Potter Discharge Orders/Prescriptions Prescriptions: Continued fluoxetine 40 mg capsule 40 mg PO DAILY naltrexone 50 mg tablet 50 mg PO DAILY Patient Comments: PT HAS MED, BUT HAS NOT STARTED TAKING YET lisinopril 10 mg tablet 10 mg PO DAILY Patient Comments: PT TAKES NEEDED Referrals / Follow Up: Nayan Blackwell MD [Primary Care Provider] - Disposition Disposition (needs filled in before D/C Order can be placed): Home, Self Care
--- NOTE | 2024-03-06 10:52 | PCM.DC.SUM ---
Providers Date of Admission: 03/03/24 Date of Discharge: 03/06/24 Primary Care Physician: Dr. Nayan Blackwell MD Reason For Visit: DESIRE FOR DETOXIFICATION Diagnosis Discharge Diagnosis (1) Alcohol abuse: Status: Chronic Code(s): F10.10 - Alcohol abuse, uncomplicated (2) Desire for detoxification: Status: Resolved (3) Tobacco abuse: Status: Chronic Code(s): Z72.0 - Tobacco use Medications at Discharge Home Medications fluoxetine 40 mg capsule 40 mg PO DAILY 03/03/24 lisinopril 10 mg tablet 10 mg PO DAILY 03/03/24 naltrexone 50 mg tablet 50 mg PO DAILY 03/03/24 Hospital Course Operations None Procedures None Summary of Care Provided Minutes Spent on Discharge: 25 Hospital Course: Patient is a 33-year-old male who presented [facility] ED on 03/03/2024 for alcohol detoxification. Hospital course as noted below. Patient discharged home in stable condition on 03/06. 1. Alcohol abuse with desire for detoxification ? Case management followed. Treated with phenobarbital taper with as needed medications per alcohol withdrawal order set with good control of withdrawal symptoms. Patient may attend AA meetings going forward, does not desire any outpatient therapy at this time. Discharged home in stable condition. Strongly encouraged alcohol cessation going forward. Chronic medical conditions: ? Obesity: BMI 30 on admit. Encouraged lifestyle modifications. ? Tobacco abuse: Nicotine patch and gum provided during admission per patient request. ? Hypertension: Stable. Continue home lisinopril. ? Anxiety: Stable. Continue home fluoxetine. Total clinical time spent by myself addressing the patient's medical issues, reviewing all the data, and collaborating with patient's care team: 25 minutes. Physical Exam Const alert, oriented x3 and no apparent distress Constitutional Narrative: Pleasant younger male, obese, sitting up comfortably in bed, conversing normally, in no acute distress. General Appearance: cooperative and comfortable HEENT normocephalic, head/scalp atraumatic, hearing grossly normal bilaterally and nasal mucous membranes and turbinates normal Eyes PERRL, EOMs intact bilaterally and conjunctivae normal Neck full ROM Chest inspection of chest normal Resp normal respiratory effort, normal air movement, no use of accessory muscles and clear to auscultation bilaterally Cardio regular rate, regular rhythm, no murmurs and peripheral pulses 2+ throughout GI normal to inspection, nondistended, normoactive bowel sounds, soft to palpation, non-tender and non-distended Back/Spine normal ROM Extremity normal to inspection, full ROM and no pedal edema Skin no rashes or lesions noted Neuro moves all extremities and no focal motor deficits Speech: speech normal Psych mental status grossly normal Weight / BMI Weight Weight: 99.564 kg Body Mass Index (BMI) 30.6 ABG / Lab / Microbiology Data 03/03/24 16:05 03/03/24 16:05 Meaningful Use Info Meaningful Use Meaningful Use Diagnoses (Choose all that apply): None applicable Ischemic Stroke Statin Dosing Therapy Reference: STATIN DOSE THERAPY REFERENCE: * Patients > 75 years receive moderate or high dose statin therapy. * Patients 75 years or YOUNGER should receive HIGH intensity statin dose unless contraindicated. You will be required to document reason for non-treatment if statin daily dose does not meet guidelines. HIGH DOSE STATIN THERAPY DAILY Atorvastatin > than or = to 40 mg Rosuvastatin > than or = to 20 mg Amlodipine + Atorvastatin > than or = to 2.5/40 mg Ezetimibe + Simvastatin 10/80 mg Simvastatin 80mg Discharge Plan Admission Admit Date/Time: 03/03/24 17:56 Primary Reason for Your Visit: Alcohol detox Attending Provider: Familia Stinson Primary Care Provider: Nayan Blackwell Consulting Providers: Josemanuel Potter Discharge Orders/Prescriptions Prescriptions: Continued fluoxetine 40 mg capsule 40 mg PO DAILY naltrexone 50 mg tablet 50 mg PO DAILY Patient Comments: PT HAS MED, BUT HAS NOT STARTED TAKING YET lisinopril 10 mg tablet 10 mg PO DAILY Patient Comments: PT TAKES NEEDED Referrals / Follow Up: Nayan Blackwell MD [Primary Care Provider] - Disposition Disposition (needs filled in before D/C Order can be placed): Home, Self Care Charges/Coding Visit Charges Inpatient E&M: 87745 Disch Hosp
--- NOTE | 2024-03-06 11:15 | PHA.DC.MR.R ---
Pharmacy [place] Med Reconciliation Pharmacy Service has performed discharge medication reconciliation for this patient. The patient's discharge medication list was reviewed for discrepancies and discrepancies were resolved. Medications at Discharge Home Medications fluoxetine 40 mg capsule 40 mg PO DAILY 03/03/24 lisinopril 10 mg tablet 10 mg PO DAILY 03/03/24 naltrexone 50 mg tablet 50 mg PO DAILY 03/03/24
[2024-03-06] MEDS: Phenobarbital 32.4 MG Tablet PO (11:36)
== END 2024-03-06 11:56 | disposition home or self-care (01) | DRG 897 ==
LOC: ED 16:39 → MS3 18:32
PROVIDERS: Admitting Provider Hospitalist; Emergency Provider Student in an Organized Health Care Education/Training Program; PCP Family Medicine; Referring Provider Hospitalist; Visit Provider Hospitalist
DX: F10.230 Alcohol dependence with withdrawal, uncomplicated (principal); E66.9 Obesity, unspecified; F10.220 Alcohol dependence with intoxication, uncomplicated; I10 Essential (primary) hypertension; F17.220 Nicotine dependence, chewing tobacco, uncomplicated; Y90.8 Blood alcohol level of 240 mg/100 ml or more; F41.1 Generalized anxiety disorder; Z68.30 Body mass index [BMI] 30.0-30.9, adult; Z79.899 Other long term (current) drug therapy; Z56.0 Unemployment, unspecified; Z63.4 Disappearance and death of family member; Z81.1 Family history of alcohol abuse and dependence
CPT/HCPCS: 80053; 80307; 80320; 83690; 85025; 99283; 99406; A4216; G0480

== ENCOUNTER 2024-03-18 13:16 | Emergency (ER) | payer SELFPAY ==
[2024-03-18 13:17] VITALS: BP 141/86; PULSE 74; RESP 14; TEMP 35.8; O2SAT 99; BMI 31.6
--- NOTE | 2024-03-18 13:35 | RAD_ITS ---
STUDY: X-RAY - RIGHT WRIST REASON FOR EXAM: Male, 33 years old. Pain, swelling TECHNIQUE: 3 view(s) of the wrist were obtained. COMPARISON: None. FINDINGS: Normal visualized distal radius and ulna. Normal radiocarpal articulation. Normal distal radioulnar articulation. Normal carpal bones. Normal carpal articulations. Normal carpometacarpal articulation of the thumb. Normal second through fifth carpometacarpal articulations. Normal visualized metacarpal bones. Soft tissue swelling. RAD/Wrist min 3 Views IMPRESSION: Soft tissue swelling. Electronically Signed: Hugo Weinstein MD at 14:05 EDT ,
--- NOTE | 2024-03-18 13:47 | EDS_ITS ---
HPI History of Present Illness Chief Complaint: Upper Extremity Injury Narrative Narrative: 33-year-old male who denies significant past medical history presents with right wrist pain that has had for a week. He is right-hand dominant. He states he was working on his truck, and his hand flew off the wrench. He may have sprained his wrist. He complains of wrist pain that is worse with movement with mild swelling. He has tried ice, elevation, and Tylenol and ibuprofen without relief. He presents for evaluation of his wrist injury that he sustained approximately a week ago. He describes throbbing pain into his forearm as well, especially at night. [facility] Medical History Alcohol abuse Anxiety Smoker Anxiety disorder Tobacco abuse Asthma Hypertension Hypertension Home Medications ?Medication ?Instructions ?Recorded ?Last Taken ?Type fluoxetine 40 mg capsule 40 mg PO DAILY 03/03/24 03/03/24 History lisinopril 10 mg tablet 10 mg PO DAILY 03/03/24 Unknown History Allergy/AdvReac Type Severity Reaction Status Date / Time Penicillins Allergy Intermediate Rash Verified 03/18/24 13:20 Family History Father Alcoholism in family member Surgical History History of tonsillectomy History of appendectomy Social History Smoking Status: Current every day smoker tobacco type: smokeless tobacco Smokeless tobacco user: chewing tobacco alcohol intake: current alcohol intake frequency: 3 or more drinks per day Alcohol type: beer substance use type: does not use ROS ROS ED ROS Narrative Constitutional: No fever, no chills. HEENT: No sore throat. No neck pain. No loss of vision. No rhinorrhea. Cardiovascular: No chest pain. No palpitations. No pedal edema. Respiratory: No cough, no shortness of breath. Abdominal: No abdominal pain. No nausea. No vomiting. Genitourinary: No dysuria. No hematuria. Musculoskeletal: No myalgias. Right wrist pain and swelling. Pain worse with movement of right wrist. Neurologic: No headaches. No dizziness. No lightheadedness. Skin: No rash. No change in color. Psychiatric: No depression. No anxiety. EXAM Physical Exam Narrative Exam Narrative: Afebrile. Vital signs noted. Regular rate and rhythm. Lungs clear to auscultation bilaterally. Abdomen soft nontender with normoactive bowel sounds. Mild swelling diffusely right wrist with tenderness to palpation along distal radius and distal ulna. Range of motion of wrist limited secondary to pain. No tenderness or swelling or pain at elbow. Pronation and supination of forearm intact. Palpable right radial pulse. Able to oppose right thumb. Full range of motion of fingers. Good capillary refill on digits of right hand. Const Vital Signs: 03/18/24 13:17 Temperature 96.4 F L Temperature Source Temporal Pulse Rate 74 Respiratory Rate 14 Blood Pressure 141/86 H Blood Pressure Mean 104 Pulse Ox 99 Oxygen Delivery Method Room Air MDM MDM MDM Narrative Medical decision making narrative: Concern is for right wrist fracture versus sprain versus tendinitis versus bursitis. X-rays were obtained of the right wrist and 3 views and interpreted by myself independently. On my independent interpretation, I see no evidence of acute fracture. I reviewed the radiology report which confirms my independent interpretation and comments on soft tissue swelling. Hence, I think he probably has more of a wrist sprain versus muscle strain. He will be placed in a Velcro splint for support and continue ice, elevation, and [id number] medications. He was referred to orthopedics on-call but can also follow-up with his primary care provider in a week if not improving. I feel he be discharged safely home with follow-up. Return instructions to the emergency department were reviewed. Disposition is discharged home in stable condition. History & Record Review Discussion w/independent historian: Patient Discharge Plan Triage Chief Complaint: Upper Extremity Injury ED Provider: Bassam Dewitt Dx/Rx/DC Orders Clinical Impression: Right wrist sprain, Arthralgia of wrist, right Instructions: ED Wrist Sprain Prescriptions: No Action fluoxetine 40 mg capsule 40 mg PO DAILY lisinopril 10 mg tablet 10 mg PO DAILY Patient Comments: PT TAKES NEEDED Primary Care Provider: Nayan Blackwell Referrals: Steven Guzman MD [Med Staff - Active Staff] - As Needed Nayan Blackwell MD [Primary Care Provider] - 1 Week if not improving Print Language: Upper Sorbian Disposition Disposition: Home, Self Care
== END 2024-03-18 14:29 | disposition home or self-care (01) ==
PROVIDERS: Emergency Provider Emergency Medicine; PCP Family Medicine; Visit Provider Emergency Medicine
DX: S63.91XA Sprain of unspecified part of right wrist and hand, initial encounter (principal); F17.220 Nicotine dependence, chewing tobacco, uncomplicated; I10 Essential (primary) hypertension; J45.909 Unspecified asthma, uncomplicated; X58.XXXA Exposure to other specified factors, initial encounter; Y92.812 Truck as the place of occurrence of the external cause
CPT/HCPCS: 73110; 99283

== ENCOUNTER → 2025-01-20 | Outpatient (CLI) | payer OTHER, SELFPAY ==
--- NOTE | 2025-01-20 12:52 | RAD_ITS ---
PROCEDURE: ANKLE MIN 3 VIEWS (RADMINERVA), 01/20/2025 REASON FOR EXAM: PAIN TECHNIQUE: AP, lateral, and oblique views of the LEFT ankle were obtained. COMPARISON: None FINDINGS: Fracture/dislocation: None visible. Joint space(s): Preserved. Soft tissues: Question thickening of the distal Achilles tendon. Suspect trace soft tissue swelling along the lateral malleolus. Foreign bodies: None visible. Bone mineralization: Unremarkable. Other: None. RAD/Ankle min 3 Views IMPRESSION: 1. No visible acute displaced fracture. 2. Suspect thickening of the distal Achilles tendon. Suspect trace soft tissue swelling along the lateral malleolus. Correlate for clinical evidence of soft tissue injury and/or tendinopathy in these areas. Reading Location: [id number]
== END | disposition home or self-care (01) ==
PROVIDERS: PCP Family Medicine; Referring Provider Physician Assistant; Visit Provider Physician Assistant
DX: M25.572 Pain in left ankle and joints of left foot (principal)
CPT/HCPCS: 73610

== ENCOUNTER → 2025-02-25 | Outpatient (CLI) | payer OTHER, SELFPAY ==
--- NOTE | 2025-02-25 12:15 | MRI_ITS ---
PROCEDURE: LOWER EXT JOINT ONLY (ROUTINE) 02/25/2025 REASON FOR EXAM: LEFT ACHILLES STRAIN, W/ LIKELY TEAR TECHNIQUE: MRI of the Lower Extremity. Multiplanar and multisequence images were obtained without IV contrast administration. COMPARISON: COMPARISON : none FINDINGS: Focal denudation of the articular cartilage overlying the medial aspect of the talar dome with subcortical marrow edema. Mild thickening of the Achilles tendon showing intrasubstance high signal with no fibers interruption. Subcutaneous soft tissue edema along its posterolateral aspect. Intact peroneus longus and brevis tendons. Intact tibialis posterior, flexor hallucis longus, flexor digitorum longus and extensor tendons. The lateral compartment ligaments including the talofibular ligament and tibio- fibular ligaments appear normal. The medial compartment ligament including plantar calcaneofibular ligament also appear normal. The interosseous ligament between the talus and calcaneus is intact. No marrow infiltrative lesions Normal appearance of the planter fascia. Mild tibiotalar, tibio-fibular and to less extent sub-talar and inter-tarsal joints effusion. No synovial thickening. Neurovascular tissue appear normal. MRI/Lower Ext Joint Only (Routine) IMPRESSION: Osteochondral injury of the medial aspect of the taklar dome. Achilles tendonitis with subcutaneous soft tissue edema along its posterolatera l aspect. Mild tibiotalar, tibio-fibular and to less extent sub-talar and inter-tarsal mai ints effusion. No synovial thickening. Reading Location: [place] [id number]
== END | disposition home or self-care (01) ==
LOC: OPMRI 12:12
PROVIDERS: PCP Family Medicine; Referring Provider Physician Assistant; Visit Provider Physician Assistant
DX: S86.012A Strain of left Achilles tendon, initial encounter (principal); X58.XXXA Exposure to other specified factors, initial encounter
CPT/HCPCS: 73721